=== PATIENT | female | born 1955 | race African-American/Black ===

== ENCOUNTER 2024-11-18 04:49 | Inpatient (IN) | payer OTHER ==
[2024-11-18] MEDS ORDERED: methylPREDNISolone NA SUCC 125 MG/2 ML VIAL ONE (05:24)
[2024-11-18] MEDS ORDERED: ALBUTEROL SO4 2.5/IPRATROPIUM 0.5 INH SOL 3 ML VIAL.NEB. NEB ONE (05:24)
[2024-11-18] MEDS: ALBUTEROL SO4 2.5/IPRATROPIUM 0.5 INH SOL 3 ML VIAL.NEB. NEB ONE (05:30)
[2024-11-18] MEDS: methylPREDNISolone NA SUCC 125 MG/2 ML VIAL IVPUSH ONE (05:47)
[2024-11-18 05:49] LABS: VENOUS BASE EXCESS 6.3 mmol/L (-2-2); VENOUS O2 SATURATION 43.4 % (70-80); VENOUS PCO2 60.6 mmHg (38-52); VENOUS PH 7.365 (7.310-7.410)
[2024-11-18 05:59] LABS: BASO % 1.1 % (0-2.0); EOS % 1.6 % (0-4.5); HEMATOCRIT 42.8 % (32.4-45.2); HEMOGLOBIN 13.9 GM/dL (10.7-15.3); LYMPH % 13.4 % (8-40); MCH 28.3 pg (25.7-33.7); MCHC 32.5 g/dl (32.0-36.0); MEAN CELL VOLUME 86.8 fl (80-96); MEAN PLT VOLUME 6.8 fl (7.5-11.1); MONO % 5.3 % (3.8-10.2); NEUT % 78.6 % (42.8-82.8); PLATELET COUNT 356 10^3/uL (134-434); RBC 4.93 M/mm3 (3.60-5.2); RDW 14.1 % (11.6-15.6); WHITE BLOOD COUNT 5.7 K/mm3 (4.0-10.0)
[2024-11-18 06:09] LABS: POTASSIUM 3.2 mmol/L (3.5-5.1)
[2024-11-18 06:11] LABS: ALBUMIN 3.7 g/dl (3.4-5.0); CALCIUM 9.5 mg/dL (8.5-10.1)
[2024-11-18 06:12] LABS: BLOOD UREA NITROGEN 20.3 mg/dL (7-18)
[2024-11-18 06:15] LABS: CREATININE 0.8 mg/dL (0.55-1.3)
[2024-11-18 06:16] LABS: BILIRUBIN,TOTAL 0.4 mg/dL (0.2-1); TOT PROT 7.4 g/dl (6.4-8.2)
[2024-11-18 06:19] LABS: N-TERMINAL BNP 92.5 pg/ml (5-125)
[2024-11-18] MEDS: POTASSIUM CHLORIDE ORAL LIQUID 20 MEQ/15 ML PO ONE ×2 (06:41→06:52)
[2024-11-18] MEDS ORDERED: CEFTRIAXONE 1 G/50 ML PREMIX 50 ML IVPB ONE (06:51)
[2024-11-18] MEDS ORDERED: POTASSIUM CHLORIDE ORAL LIQUID 20 MEQ/15 ML ONE (06:51)
[2024-11-18] MEDS: CEFTRIAXONE 1,000 MG in DEXTROSE 5%-WATER - 50 ML IVPB ONE (06:52)
[2024-11-18] MEDS: AZITHROMYCIN IVPB 500 MG in DEXTROSE 5%-WATER - 250 ML IVPB ONE (07:45)
[2024-11-18] MEDS ORDERED: AZITHROMYCIN IVPB 500 MG/250 ML BAG IVPB ONE (08:32)
[2024-11-18] MEDS ORDERED: ALBUTEROL SO4 2.5/IPRATROPIUM 0.5 INH SOL 3 ML VIAL.NEB. NEB PRN (10:29)
[2024-11-18] MEDS: ASPIRIN 325 MG TABLET PO SCH (11:10)
[2024-11-18] MEDS: LOSARTAN 50MG/HCTZ 12.5MG 1 TAB PO SCH (11:10)
[2024-11-18] MEDS ORDERED: ASPIRIN 325 MG TABLET ONE (11:22)
[2024-11-18] MEDS: NICOTINE 21 MG/24 HOURS TOPICAL PATCH TD SCH (17:06)
[2024-11-18] MEDS: methylPREDNISolone NA SUCC 40 MG/1 ML VIAL IVPUSH SCH (17:06)
[2024-11-18] MEDS: ALBUTEROL SO4 2.5/IPRATROPIUM 0.5 INH SOL 3 ML VIAL.NEB. NEB SCH (20:09)
[2024-11-18] MEDS: ATORVASTATIN CA 20 MG TABLET (FP) PO SCH (21:46)
[2024-11-19 08:02] LABS: HEMATOCRIT 40.9 % (32.4-45.2); HEMOGLOBIN 13.5 GM/dL (10.7-15.3); MCH 28.5 pg (25.7-33.7); MEAN CELL VOLUME 86.3 fl (80-96); MEAN PLT VOLUME 7.3 fl (7.5-11.1); PLATELET COUNT 371 10^3/uL (134-434); RBC 4.74 M/mm3 (3.60-5.2); RDW 13.7 % (11.6-15.6); WHITE BLOOD COUNT 10.6 K/mm3 (4.0-10.0)
[2024-11-19 08:22] LABS: ALBUMIN 3.7 g/dl (3.4-5.0); CALCIUM 10.3 mg/dL (8.5-10.1)
[2024-11-19 08:23] LABS: BLOOD UREA NITROGEN 21.4 mg/dL (7-18)
[2024-11-19 08:26] LABS: CREATININE 0.6 mg/dL (0.55-1.3)
[2024-11-19 08:27] LABS: BILIRUBIN,TOTAL 0.4 mg/dL (0.2-1); TOT PROT 7.3 g/dl (6.4-8.2)
[2024-11-19] MEDS: CEFTRIAXONE 1 G/50 ML PREMIX 50 ML IVPB SCH (09:35)
[2024-11-19] MEDS: ENOXAPARIN NA (PORCINE) 40 MG/0.4 ML DISP.SYRIN SQ SCH (09:35)
[2024-11-19] MEDS: AZITHROMYCIN IVPB 250 MG in DEXTROSE 5%-WATER - 250 ML IVPB SCH (10:30)
[2024-11-19 11:37] LABS: ANISOCYTOSIS 0; HELMET CELLS 0; HOWELL-JOLLY BODIES 0; MACROCYTOSIS 0; OVALOCYTE 0; ROULEAU 0; SICKELED CELLS 0; TARGET CELLS 0; TEAR DROP CELLS 0; TOXIC GRANULATION 0
[2024-11-19] MEDS: BUDESONIDE/FORMETEROL FUMARATE 160/4.5 mcg INHALER IH PRN (18:43)
[2024-11-20] MEDS: ACETAMINOPHEN 1000 MG/100 ML BAG IVPB PRN (05:35)
[2024-11-20 14:51] VITALS: BMI 22.8
[2024-11-20] MEDS: ACETAMINOPHEN 325 MG TABLET (FP) PO PRN (18:29)
[2024-11-20] MEDS: methylPREDNISolone NA SUCC 40 MG/1 ML VIAL IVPUSH SCH (21:59)
[2024-11-21] MEDS: ACETAMINOPHEN 1000 MG/100 ML BAG IVPB PRN (05:42)
[2024-11-22 08:59] LABS: BASO % 0.2 % (0-2.0); HEMOGLOBIN 13.8 GM/dL (10.7-15.3); LYMPH % 12.4 % (8-40); MCH 28.1 pg (25.7-33.7); MCHC 32.9 g/dl (32.0-36.0); MEAN CELL VOLUME 85.5 fl (80-96); MEAN PLT VOLUME 7.2 fl (7.5-11.1); MONO % 7.6 % (3.8-10.2); NEUT % 79.8 % (42.8-82.8); PLATELET COUNT 362 10^3/uL (134-434); RBC 4.92 M/mm3 (3.60-5.2); RDW 14.1 % (11.6-15.6)
[2024-11-22 09:34] LABS: ALBUMIN 3.5 g/dl (3.4-5.0); CALCIUM 10.4 mg/dL (8.5-10.1)
[2024-11-22 09:35] LABS: BLOOD UREA NITROGEN 21.2 mg/dL (7-18)
[2024-11-22 09:38] LABS: CREATININE 0.6 mg/dL (0.55-1.3)
[2024-11-22 09:39] LABS: BILIRUBIN,TOTAL 0.4 mg/dL (0.2-1); TOT PROT 6.9 g/dl (6.4-8.2)
[2024-11-23 09:14] LABS: BASO % 0.3 % (0-2.0); HEMATOCRIT 42.8 % (32.4-45.2); HEMOGLOBIN 14.2 GM/dL (10.7-15.3); LYMPH % 9.4 % (8-40); MCH 28.3 pg (25.7-33.7); MCHC 33.3 g/dl (32.0-36.0); MEAN PLT VOLUME 6.9 fl (7.5-11.1); MONO % 6.5 % (3.8-10.2); NEUT % 83.8 % (42.8-82.8); PLATELET COUNT 354 10^3/uL (134-434); RBC 5.03 M/mm3 (3.60-5.2); RDW 13.8 % (11.6-15.6); WHITE BLOOD COUNT 6.8 K/mm3 (4.0-10.0)
[2024-11-23 09:18] LABS: INR 1.01 (0.83-1.09)
[2024-11-23 09:42] LABS: POTASSIUM 4.3 mmol/L (3.5-5.1)
[2024-11-23 09:52] LABS: CALCIUM 10.3 mg/dL (8.5-10.1)
[2024-11-23 09:54] LABS: ALBUMIN 3.5 g/dl (3.4-5.0); BLOOD UREA NITROGEN 23.5 mg/dL (7-18)
[2024-11-23 09:56] LABS: CREATININE 0.6 mg/dL (0.55-1.3)
[2024-11-23 09:58] LABS: TOT PROT 6.9 g/dl (6.4-8.2)
[2024-11-23 10:00] LABS: BILIRUBIN,TOTAL 0.4 mg/dL (0.2-1)
[2024-11-23] MEDS: diphenhydrAMINE HCL 25 MG CAPSULE (FP) PO PRN (21:38)
[2024-11-24] MEDS: ALBUTEROL SO4 2.5/IPRATROPIUM 0.5 INH SOL 3 ML VIAL.NEB. NEB PRN (07:55)
[2024-11-24 08:18] LABS: BASO % 0.1 % (0-2.0); HEMATOCRIT 41.9 % (32.4-45.2); HEMOGLOBIN 13.5 GM/dL (10.7-15.3); LYMPH % 11.4 % (8-40); MCHC 32.3 g/dl (32.0-36.0); MEAN CELL VOLUME 86.6 fl (80-96); MEAN PLT VOLUME 7.2 fl (7.5-11.1); MONO % 4.4 % (3.8-10.2); NEUT % 84.1 % (42.8-82.8); PLATELET COUNT 354 10^3/uL (134-434); RBC 4.83 M/mm3 (3.60-5.2); RDW 13.8 % (11.6-15.6); WHITE BLOOD COUNT 5.5 K/mm3 (4.0-10.0)
[2024-11-24 08:37] LABS: POTASSIUM 4.5 mmol/L (3.5-5.1)
[2024-11-24 08:44] LABS: ALBUMIN 3.2 g/dl (3.4-5.0)
[2024-11-24 08:45] LABS: BLOOD UREA NITROGEN 22.8 mg/dL (7-18)
[2024-11-24 08:46] LABS: CALCIUM 9.8 mg/dL (8.5-10.1)
[2024-11-24 08:47] LABS: CREATININE 0.6 mg/dL (0.55-1.3); TOT PROT 6.3 g/dl (6.4-8.2)
[2024-11-24 08:53] LABS: BILIRUBIN,TOTAL 0.4 mg/dL (0.2-1)
[2024-11-24] MEDS: ACETAMINOPHEN 500 MG TABLET (FP) PO ONE (20:35)
[2024-11-25 08:03] LABS: BASO % 0.1 % (0-2.0); HEMATOCRIT 44.8 % (32.4-45.2); HEMOGLOBIN 14.4 GM/dL (10.7-15.3); LYMPH % 8.2 % (8-40); MCHC 32.2 g/dl (32.0-36.0); MEAN CELL VOLUME 86.9 fl (80-96); MEAN PLT VOLUME 7.1 fl (7.5-11.1); MONO % 3.5 % (3.8-10.2); NEUT % 88.2 % (42.8-82.8); PLATELET COUNT 375 10^3/uL (134-434); RBC 5.15 M/mm3 (3.60-5.2); RDW 13.8 % (11.6-15.6); WHITE BLOOD COUNT 8.1 K/mm3 (4.0-10.0)
[2024-11-25 08:22] LABS: POTASSIUM 5.1 mmol/L (3.5-5.1)
[2024-11-25 08:24] LABS: CALCIUM 10.4 mg/dL (8.5-10.1)
[2024-11-25 08:25] LABS: ALBUMIN 3.6 g/dl (3.4-5.0); BLOOD UREA NITROGEN 22.1 mg/dL (7-18)
[2024-11-25 08:28] LABS: CREATININE 0.6 mg/dL (0.55-1.3)
[2024-11-25 08:29] LABS: BILIRUBIN,TOTAL 0.5 mg/dL (0.2-1)
[2024-11-25 12:38] LABS: BF WBC & OTHER NUCLEATED CELLS 747 /mm3
[2024-11-25 12:54] LABS: BODY FLUID MESOTHELIAL 1 %; BODY FLUID MONOCYTE 15 %
[2024-11-25] MEDS: ACETAMINOPHEN 1000 MG/100 ML BAG IVPB PRN (13:58)
[2024-11-26] MEDS: ASPIRIN COATED 81 MG TABLET.EC PO SCH (09:10)
[2024-11-26 09:52] LABS: BASO % 0.1 % (0-2.0); HEMATOCRIT 43.2 % (32.4-45.2); LYMPH % 8.6 % (8-40); MCH 27.8 pg (25.7-33.7); MCHC 32.4 g/dl (32.0-36.0); MEAN CELL VOLUME 85.7 fl (80-96); MEAN PLT VOLUME 7.2 fl (7.5-11.1); MONO % 7.5 % (3.8-10.2); NEUT % 83.8 % (42.8-82.8); PLATELET COUNT 341 10^3/uL (134-434); RBC 5.03 M/mm3 (3.60-5.2); WHITE BLOOD COUNT 9.4 K/mm3 (4.0-10.0)
[2024-11-26 10:15] LABS: POTASSIUM 4.8 mmol/L (3.5-5.1)
[2024-11-26 10:18] LABS: CALCIUM 9.7 mg/dL (8.5-10.1)
[2024-11-26 10:19] LABS: ALBUMIN 3.3 g/dl (3.4-5.0); BLOOD UREA NITROGEN 23.4 mg/dL (7-18)
[2024-11-26 10:22] LABS: CREATININE 0.7 mg/dL (0.55-1.3)
[2024-11-26 10:24] LABS: BILIRUBIN,TOTAL 0.4 mg/dL (0.2-1); TOT PROT 6.4 g/dl (6.4-8.2)
[2024-11-26 14:06] LABS: BODY FLUID ALBUMIN 1.8 g/dL (Not Estab.)
[2024-11-26] MEDS: ACETAMINOPHEN 325 MG TABLET (FP) PO PRN (19:17)
[2024-11-27 09:38] LABS: BASO % 0.1 % (0-2.0); HEMATOCRIT 41.2 % (32.4-45.2); HEMOGLOBIN 13.5 GM/dL (10.7-15.3); LYMPH % 6.7 % (8-40); MCH 27.9 pg (25.7-33.7); MCHC 32.8 g/dl (32.0-36.0); MEAN PLT VOLUME 7.2 fl (7.5-11.1); MONO % 5.8 % (3.8-10.2); NEUT % 87.4 % (42.8-82.8); PLATELET COUNT 329 10^3/uL (134-434); RBC 4.85 M/mm3 (3.60-5.2); RDW 14.1 % (11.6-15.6); WHITE BLOOD COUNT 8.3 K/mm3 (4.0-10.0)
[2024-11-27 10:01] LABS: POTASSIUM 5.1 mmol/L (3.5-5.1)
[2024-11-27 10:18] LABS: CALCIUM 9.7 mg/dL (8.5-10.1)
[2024-11-27 10:19] LABS: ALBUMIN 3.3 g/dl (3.4-5.0); BLOOD UREA NITROGEN 22.4 mg/dL (7-18)
[2024-11-27 10:22] LABS: CREATININE 0.6 mg/dL (0.55-1.3)
[2024-11-27 10:23] LABS: BILIRUBIN,TOTAL 0.6 mg/dL (0.2-1)
[2024-11-27 10:24] LABS: TOT PROT 6.4 g/dl (6.4-8.2)
[2024-11-28 07:26] VITALS: TEMP 98.1
[2024-11-28 07:31] VITALS: RESP 18
[2024-11-28 12:20] VITALS: BP 132/75
[2024-11-28] MEDS ORDERED: predniSONE 20 MG TABLET (UD) PO SCH (12:45)
[2024-11-28 13:43] VITALS: PULSE 84
[2024-11-29] MEDS ORDERED: methylPREDNISolone NA SUCC 40 MG/1 ML VIAL IVPUSH SCH (10:00)
== END 2024-11-28 19:06 | disposition home or self-care (01) | DRG 181 ==
LOC: JER 04:49 → OBSVTOIN 06:30 → JERBED 06:30 → J7W 12:00
PROVIDERS: ADMIT Internal Medicine; ATTEND Internal Medicine
PROC: 0W9B3ZZ Drainage of Left Pleural Cavity, Percutaneous Approach (ICD-10-PCS; principal; 2024-11-25)
DX: D49.1 Neoplasm of unspecified behavior of respiratory system (principal); J44.1 Chronic obstructive pulmonary disease with (acute) exacerbation; J45.901 Unspecified asthma with (acute) exacerbation; J91.0 Malignant pleural effusion; I27.20 Pulmonary hypertension, unspecified; E78.5 Hyperlipidemia, unspecified; I11.0 Hypertensive heart disease with heart failure; I50.9 Heart failure, unspecified; F41.8 Other specified anxiety disorders; F17.210 Nicotine dependence, cigarettes, uncomplicated; Z85.3 Personal history of malignant neoplasm of breast
CPT/HCPCS: 0241U-QW; 36415; 71045-TC-FY; 71250-TC; 76942; 80053; 82042; 82150; 82803; 82945; 83036; 83880; 84478; 84484; 85025; 85610; 86850; 86900; 86901; 87070; 87075; 87116; 87205; 87206; 88108; 88305-TC; 88341-TC; 88342-TC; 93005; 93010; 93306-TC; 94640; 94761; 99285-25; J0131

== ENCOUNTER 2024-12-26 22:07 | Inpatient (IN) | payer OTHER ==
[2024-12-26] MEDS ORDERED: ALBUTEROL SO4 2.5/IPRATROPIUM 0.5 INH SOL 3 ML VIAL.NEB. NEB ONE (22:24)
[2024-12-26] MEDS ORDERED: methylPREDNISolone NA SUCC 125 MG/2 ML VIAL ONE ×2 (22:27→23:04)
[2024-12-26] MEDS: ALBUTEROL SO4 2.5/IPRATROPIUM 0.5 INH SOL 3 ML VIAL.NEB. NEB SCH (22:37)
[2024-12-26 22:48] LABS: RDW 13.6 % (12.4-16.6)
[2024-12-26 22:49] LABS: VENOUS O2 SATURATION 59.8 % (70-80); VENOUS PCO2 58.2 mmHg (38-52); VENOUS PH 7.407 (7.310-7.410)
[2024-12-26 22:59] LABS: ABSOLUTE IMMATURE GRANULOCYTES 0.02 x10^3/uL (0.0-0.031); BASOPHILS # 0.04 x10^3/uL (0.01-0.08); EOSINOPHIL % 1.6 % (0.7-5.8); EOSINOPHILS # 0.09 x10^3/uL (0.04-0.36); HEMATOCRIT 42.2 % (34.1-44.9); MCHC 30.8 g/dl (32.2-35.5); MEAN CELL VOLUME 87.2 fl (79.4-94.8); MONOCYTE % 8.8 % (4.7-12.5); PLATELET COUNT 514 x10^3/uL (182-369)
[2024-12-26 23:15] LABS: CHLORIDE 95 mmol/L (98-107); SODIUM 141 mmol/L (136-145)
[2024-12-26 23:17] LABS: CALCIUM 9.9 mg/dL (8.5-10.1); POTASSIUM 2.7 mmol/L (3.5-5.1)
[2024-12-26 23:18] LABS: ALBUMIN 3.4 g/dl (3.4-5.0); ANION GAP 11 mmol/L (4-13); BLOOD UREA NITROGEN 17.1 mg/dL (7-18); CO2 35 mmol/L (21-32); GLUCOSE,RANDOM 192 mg/dL (74-106); MAGNESIUM 1.9 mg/dL (1.8-2.4)
[2024-12-26] MEDS: methylPREDNISolone NA SUCC 125 MG/2 ML VIAL IVPB ONE (23:18)
[2024-12-26 23:21] LABS: CREATININE 0.7 mg/dL (0.55-1.3); SGOT/AST 13 U/L (15-37); SGPT/ALT 14 U/L (13-61)
[2024-12-26 23:22] LABS: BILIRUBIN,TOTAL 0.4 mg/dL (0.2-1); TOT PROT 6.6 g/dl (6.4-8.2)
[2024-12-26 23:23] LABS: ALK PHOS 117 U/L (45-117)
[2024-12-26] MEDS ORDERED: POTASSIUM CHLORIDE TABS 20 MEQ TABLET.ER (FP) PO ONE (23:29)
[2024-12-26] MEDS: KCL 10 MEQ IVPB 10 MEQ/100 ML INFUS.BAG IVPB SCH (23:37)
[2024-12-26] MEDS: POTASSIUM CHLORIDE TABS 20 MEQ TABLET.ER (FP) PO ONE (23:37)
[2024-12-27] MEDS ORDERED: PIPERACILLIN/TAZOB 3.375 GM 3.375 GM/50 ML BAG IVPB ONE (00:29)
[2024-12-27] MEDS ORDERED: AZITHROMYCIN IVPB 500 MG/250 ML BAG IVPB ONE (00:30)
[2024-12-27] MEDS: PIPERACILLIN/TAZOB 3.375 GM 3.375 GM in DEXTROSE 5%-WATER - 50 ML IVPB ONE (01:25)
[2024-12-27] MEDS: amLODIPine BESYLATE 5 MG TABLET (FP) PO ONE (01:43)
[2024-12-27] MEDS: AZITHROMYCIN IVPB 500 MG in DEXTROSE 5%-WATER - 250 ML IVPB ONE (01:43)
[2024-12-27] MEDS: LOSARTAN 50MG/HCTZ 12.5MG 1 TAB PO ONE (01:43)
[2024-12-27] MEDS ORDERED: PIPERACILLIN/TAZOB 3.375 GM 3.375 GM in DEXTROSE 5%-WATER - 50 ML IVPB SCH (02:00)
[2024-12-27] MEDS ORDERED: ALBUTEROL SO4 0.083% IH SOL 2.5 MG/3 ML VIAL.NEB. NEB ONE (03:28)
[2024-12-27] MEDS: ALBUTEROL SO4 0.083% IH SOL 2.5 MG/3 ML VIAL.NEB. NEB SCH (03:30)
[2024-12-27] MEDS: HEPARIN NA (PORCINE) 5,000 UNITS/ML 1ML VIAL SQ SCH (06:02)
[2024-12-27] MEDS: POTASSIUM CHLORIDE TABS 20 MEQ TABLET.ER (FP) PO ONE (08:58)
[2024-12-27 10:12] LABS: ABSOLUTE IMMATURE GRANULOCYTES 0.01 x10^3/uL (0.0-0.031); BASOPHILS # 0.04 x10^3/uL (0.01-0.08); EOSINOPHIL % 1.1 % (0.7-5.8); EOSINOPHILS # 0.05 x10^3/uL (0.04-0.36); HEMATOCRIT 38.3 % (34.1-44.9); HEMOGLOBIN 11.9 g/dL (11.2-15.7); MCHC 31.1 g/dl (32.2-35.5); MEAN CELL VOLUME 86.8 fl (79.4-94.8); MEAN PLT VOLUME 9.1 fl (9.4-12.3); MONOCYTE # 0.36 x10^3/uL (0.24-0.86); MONOCYTE % 7.6 % (4.7-12.5); PLATELET COUNT 470 x10^3/uL (182-369); RDW 13.8 % (12.4-16.6)
[2024-12-27] MEDS: ASPIRIN COATED 81 MG TABLET.EC PO SCH (10:18)
[2024-12-27 10:34] LABS: POTASSIUM 3.5 mmol/L (3.5-5.1)
[2024-12-27 10:38] LABS: BLOOD UREA NITROGEN 15.9 mg/dL (7-18); CALCIUM 9.3 mg/dL (8.5-10.1)
[2024-12-27 10:40] LABS: ALBUMIN 3.1 g/dl (3.4-5.0)
[2024-12-27 10:42] LABS: CREATININE 0.7 mg/dL (0.55-1.3)
[2024-12-27 10:44] LABS: BILIRUBIN,TOTAL 0.5 mg/dL (0.2-1); TOT PROT 6.3 g/dl (6.4-8.2)
[2024-12-27] MEDS: PIPERACILLIN/TAZOB 3.375 GM 50 ML IVPB SCH ×2 (10:55→17:36)
[2024-12-27] MEDS: FLUTICASONE/UMECLIDIN/VILANTER(200-62.5-25 TRELEGY ELLIPTA) INAHLER IH SCH (15:35)
[2024-12-27] MEDS: ATORVASTATIN CA 40 MG TABLET (FP) PO SCH (21:13)
[2024-12-28 09:35] LABS: INR 1.04 (0.83-1.09); PROTHROMBIN TIME (PATIENT) 11.4 SEC (9.7-13.0)
[2024-12-28 09:37] LABS: ABSOLUTE IMMATURE GRANULOCYTES 0.01 x10^3/uL (0.0-0.031); BASOPHILS # 0.01 x10^3/uL (0.01-0.08); EOSINOPHIL % 1.8 % (0.7-5.8); EOSINOPHILS # 0.08 x10^3/uL (0.04-0.36); HEMATOCRIT 39.4 % (34.1-44.9); HEMOGLOBIN 12.3 g/dL (11.2-15.7); MCHC 31.2 g/dl (32.2-35.5); MEAN CELL VOLUME 86.8 fl (79.4-94.8); MONOCYTE # 0.32 x10^3/uL (0.24-0.86); MONOCYTE % 7.2 % (4.7-12.5); RDW 13.7 % (12.4-16.6)
[2024-12-28 09:47] LABS: POTASSIUM 3.7 mmol/L (3.5-5.1)
[2024-12-28 09:53] LABS: CALCIUM 9.9 mg/dL (8.5-10.1)
[2024-12-28 09:54] LABS: ALBUMIN 3.2 g/dl (3.4-5.0); BLOOD UREA NITROGEN 11.2 mg/dL (7-18)
[2024-12-28 09:57] LABS: CREATININE 0.6 mg/dL (0.55-1.3)
[2024-12-28 09:59] LABS: TOT PROT 6.4 g/dl (6.4-8.2)
[2024-12-28 10:00] LABS: BILIRUBIN,TOTAL 0.5 mg/dL (0.2-1)
[2024-12-28 15:17] VITALS: BMI 22.8
[2024-12-28 18:17] LABS: MEAN PLT VOLUME 9.9 fl (9.4-12.3); PLATELET COUNT 477 x10^3/uL (182-369)
[2024-12-28] MEDS: INSULIN ASPART SLIDING SCALE (NOVOLOG) 1 VIAL SQ SCH (21:09)
[2024-12-29 08:34] LABS: ABSOLUTE IMMATURE GRANULOCYTES 0.01 x10^3/uL (0.0-0.031); BASOPHILS # 0.03 x10^3/uL (0.01-0.08); EOSINOPHIL % 1.4 % (0.7-5.8); EOSINOPHILS # 0.08 x10^3/uL (0.04-0.36); HEMATOCRIT 38.5 % (34.1-44.9); HEMOGLOBIN 11.8 g/dL (11.2-15.7); MCHC 30.6 g/dl (32.2-35.5); MEAN CELL VOLUME 87.3 fl (79.4-94.8); MEAN PLT VOLUME 8.8 fl (9.4-12.3); MONOCYTE # 0.35 x10^3/uL (0.24-0.86); MONOCYTE % 6.3 % (4.7-12.5); PLATELET COUNT 491 x10^3/uL (182-369); RDW 13.8 % (12.4-16.6)
[2024-12-29 08:57] LABS: POTASSIUM 3.4 mmol/L (3.5-5.1)
[2024-12-29 09:17] LABS: CALCIUM 10.3 mg/dL (8.5-10.1)
[2024-12-29 09:18] LABS: ALBUMIN 3.2 g/dl (3.4-5.0)
[2024-12-29 09:21] LABS: CREATININE 0.6 mg/dL (0.55-1.3)
[2024-12-29 09:22] LABS: BILIRUBIN,TOTAL 0.5 mg/dL (0.2-1); TOT PROT 6.5 g/dl (6.4-8.2)
[2024-12-29] MEDS ORDERED: MIDAZOLAM HCL 2 MG/2 ML SINGLE DOSE VIAL ONE (09:27)
[2024-12-29] MEDS ORDERED: FENTANYL CITRATE/PF 50 MCG/ML VIAL ONE ×2 (09:27→09:43)
[2024-12-29] MEDS: FENTANYL CITRATE/PF 50 MCG/ML VIAL IVPUSH ONE ×2 (09:35→09:45)
[2024-12-29] MEDS: MIDAZOLAM HCL 2 MG/2 ML SINGLE DOSE VIAL IVPUSH ONE ×2 (09:35→09:40)
[2024-12-29] MEDS: ACETAMINOPHEN 1000 MG/100 ML BAG IVPB PRN (13:52)
[2024-12-30 08:57] LABS: ABSOLUTE IMMATURE GRANULOCYTES 0.02 x10^3/uL (0.0-0.031); BASOPHILS # 0.05 x10^3/uL (0.01-0.08); EOSINOPHIL % 1.3 % (0.7-5.8); EOSINOPHILS # 0.09 x10^3/uL (0.04-0.36); HEMATOCRIT 37.7 % (34.1-44.9); HEMOGLOBIN 11.6 g/dL (11.2-15.7); MCHC 30.8 g/dl (32.2-35.5); MEAN CELL VOLUME 86.9 fl (79.4-94.8); MEAN PLT VOLUME 8.6 fl (9.4-12.3); MONOCYTE # 0.66 x10^3/uL (0.24-0.86); MONOCYTE % 9.7 % (4.7-12.5); PLATELET COUNT 456 x10^3/uL (182-369); RDW 14.1 % (12.4-16.6)
[2024-12-30 09:27] LABS: POTASSIUM 3.3 mmol/L (3.5-5.1)
[2024-12-30 09:52] LABS: ALBUMIN 2.8 g/dl (3.4-5.0); CALCIUM 9.9 mg/dL (8.5-10.1)
[2024-12-30 09:55] LABS: CREATININE 0.5 mg/dL (0.55-1.3)
[2024-12-30 09:57] LABS: BILIRUBIN,TOTAL 0.6 mg/dL (0.2-1); TOT PROT 5.9 g/dl (6.4-8.2)
[2024-12-30] MEDS: ENOXAPARIN NA (PORCINE) 40 MG/0.4 ML DISP.SYRIN SQ SCH (10:14)
[2024-12-30] MEDS: ACETAMINOPHEN 1000 MG/100 ML BAG IVPB PRN (22:27)
[2024-12-30] MEDS: ZOLPIDEM TARTRATE 5 MG TABLET PO PRN (22:27)
[2024-12-30] MEDS: BUDESONIDE/FORMETEROL FUMARATE 160/4.5 mcg INHALER IH SCH (22:27)
[2024-12-31 08:39] LABS: ABSOLUTE IMMATURE GRANULOCYTES 0.02 x10^3/uL (0.0-0.031); BASOPHILS # 0.04 x10^3/uL (0.01-0.08); EOSINOPHIL % 1.3 % (0.7-5.8); EOSINOPHILS # 0.07 x10^3/uL (0.04-0.36); HEMATOCRIT 39.1 % (34.1-44.9); MCHC 30.7 g/dl (32.2-35.5); MEAN CELL VOLUME 88.1 fl (79.4-94.8); MEAN PLT VOLUME 8.8 fl (9.4-12.3); MONOCYTE # 0.52 x10^3/uL (0.24-0.86); MONOCYTE % 9.4 % (4.7-12.5); PLATELET COUNT 429 x10^3/uL (182-369); RDW 14.3 % (12.4-16.6)
[2024-12-31 09:02] LABS: POTASSIUM 3.3 mmol/L (3.5-5.1)
[2024-12-31 09:13] LABS: CALCIUM 9.7 mg/dL (8.5-10.1)
[2024-12-31 09:14] LABS: ALBUMIN 2.8 g/dl (3.4-5.0); BLOOD UREA NITROGEN 12.8 mg/dL (7-18)
[2024-12-31 09:17] LABS: CREATININE 0.5 mg/dL (0.55-1.3)
[2024-12-31 09:19] LABS: BILIRUBIN,TOTAL 0.8 mg/dL (0.2-1); TOT PROT 5.8 g/dl (6.4-8.2)
[2024-12-31] MEDS: POTASSIUM CHLORIDE ORAL LIQUID 20 MEQ/15 ML PO ONE (13:43)
[2024-12-31] MEDS: ACETAMINOPHEN 1000 MG/100 ML BAG IVPB PRN (23:15)
[2025-01-01 08:23] LABS: ABSOLUTE IMMATURE GRANULOCYTES 0.01 x10^3/uL (0.0-0.031); BASOPHILS # 0.03 x10^3/uL (0.01-0.08); EOSINOPHIL % 1.2 % (0.7-5.8); EOSINOPHILS # 0.07 x10^3/uL (0.04-0.36); HEMOGLOBIN 11.2 g/dL (11.2-15.7); MCHC 31.1 g/dl (32.2-35.5); MEAN CELL VOLUME 87.2 fl (79.4-94.8); MONOCYTE # 0.62 x10^3/uL (0.24-0.86); MONOCYTE % 10.9 % (4.7-12.5); PLATELET COUNT 409 x10^3/uL (182-369)
[2025-01-01 08:30] LABS: POTASSIUM 3.3 mmol/L (3.5-5.1)
[2025-01-01 08:31] LABS: BLOOD UREA NITROGEN 14.9 mg/dL (7-18); CALCIUM 9.3 mg/dL (8.5-10.1)
[2025-01-01 08:32] LABS: ALBUMIN 2.5 g/dl (3.4-5.0)
[2025-01-01 08:35] LABS: CREATININE 0.4 mg/dL (0.55-1.3)
[2025-01-01 08:36] LABS: BILIRUBIN,TOTAL 0.4 mg/dL (0.2-1)
[2025-01-01 08:52] LABS: TOT PROT 5.5 g/dl (6.4-8.2)
[2025-01-01] MEDS: ESCITALOPRAM OXALATE 10 MG TABLET PO SCH (16:14)
[2025-01-02 08:10] LABS: ABSOLUTE IMMATURE GRANULOCYTES 0.02 x10^3/uL (0.0-0.031); BASOPHILS # 0.04 x10^3/uL (0.01-0.08); EOSINOPHIL % 1.1 % (0.7-5.8); EOSINOPHILS # 0.06 x10^3/uL (0.04-0.36); HEMATOCRIT 35.5 % (34.1-44.9); HEMOGLOBIN 10.9 g/dL (11.2-15.7); MCHC 30.7 g/dl (32.2-35.5); MEAN CELL VOLUME 88.5 fl (79.4-94.8); MEAN PLT VOLUME 8.7 fl (9.4-12.3); MONOCYTE # 0.57 x10^3/uL (0.24-0.86); MONOCYTE % 10.4 % (4.7-12.5); PLATELET COUNT 410 x10^3/uL (182-369); RDW 14.1 % (12.4-16.6)
[2025-01-02 08:38] LABS: POTASSIUM 3.9 mmol/L (3.5-5.1)
[2025-01-02 08:45] LABS: CALCIUM 9.6 mg/dL (8.5-10.1)
[2025-01-02 08:46] LABS: ALBUMIN 2.6 g/dl (3.4-5.0)
[2025-01-02 08:49] LABS: CREATININE 0.5 mg/dL (0.55-1.3)
[2025-01-02 08:50] LABS: BILIRUBIN,TOTAL 0.5 mg/dL (0.2-1)
[2025-01-02 08:51] LABS: TOT PROT 5.9 g/dl (6.4-8.2)
[2025-01-03 08:39] LABS: ABSOLUTE IMMATURE GRANULOCYTES 0.03 x10^3/uL (0.0-0.031); BASOPHILS # 0.03 x10^3/uL (0.01-0.08); EOSINOPHIL % 0.5 % (0.7-5.8); EOSINOPHILS # 0.03 x10^3/uL (0.04-0.36); HEMOGLOBIN 11.3 g/dL (11.2-15.7); MCHC 30.5 g/dl (32.2-35.5); MEAN CELL VOLUME 88.7 fl (79.4-94.8); MEAN PLT VOLUME 8.9 fl (9.4-12.3); MONOCYTE # 0.43 x10^3/uL (0.24-0.86); MONOCYTE % 7.6 % (4.7-12.5); PLATELET COUNT 434 x10^3/uL (182-369); RDW 14.1 % (12.4-16.6)
[2025-01-03 09:00] LABS: POTASSIUM 3.8 mmol/L (3.5-5.1)
[2025-01-03 09:06] LABS: ALBUMIN 2.7 g/dl (3.4-5.0); CALCIUM 9.3 mg/dL (8.5-10.1)
[2025-01-03 09:10] LABS: CREATININE 0.5 mg/dL (0.55-1.3)
[2025-01-03 09:11] LABS: BILIRUBIN,TOTAL 0.8 mg/dL (0.2-1)
[2025-01-03] MEDS: NICOTINE 21 MG/24 HOURS TOPICAL PATCH TD SCH (16:04)
[2025-01-04 09:37] LABS: ABSOLUTE IMMATURE GRANULOCYTES 0.02 x10^3/uL (0.0-0.031); BASOPHILS # 0.03 x10^3/uL (0.01-0.08); EOSINOPHIL % 0.2 % (0.7-5.8); EOSINOPHILS # 0.01 x10^3/uL (0.04-0.36); HEMATOCRIT 37.8 % (34.1-44.9); HEMOGLOBIN 11.3 g/dL (11.2-15.7); MCHC 29.9 g/dl (32.2-35.5); MEAN CELL VOLUME 89.4 fl (79.4-94.8); MONOCYTE # 0.48 x10^3/uL (0.24-0.86); MONOCYTE % 8.3 % (4.7-12.5); PLATELET COUNT 461 x10^3/uL (182-369)
[2025-01-04 09:52] LABS: POTASSIUM 4.1 mmol/L (3.5-5.1)
[2025-01-04 09:58] LABS: ALBUMIN 2.8 g/dl (3.4-5.0); BLOOD UREA NITROGEN 17.6 mg/dL (7-18); CALCIUM 9.6 mg/dL (8.5-10.1)
[2025-01-04 10:01] LABS: CREATININE 0.5 mg/dL (0.55-1.3)
[2025-01-04 10:02] LABS: BILIRUBIN,TOTAL 0.6 mg/dL (0.2-1); TOT PROT 6.4 g/dl (6.4-8.2)
[2025-01-04] MEDS: ACETAMINOPHEN 1000 MG/100 ML BAG IVPB PRN (11:12)
[2025-01-05 04:08] VITALS: RESP 18
[2025-01-06 12:47] VITALS: BP 136/83; PULSE 98; TEMP 98.4
== END 2025-01-06 11:05 | DRG 598 ==
LOC: JER 22:07 → JERBED 23:52 → J6S 12-27 03:53
PROVIDERS: ADMIT Hospitalist; ATTEND Internal Medicine
PROC: 0W9B3ZZ Drainage of Left Pleural Cavity, Percutaneous Approach (ICD-10-PCS; principal; 2024-12-29)
DX: C50.919 Malignant neoplasm of unspecified site of unspecified female breast (principal); J44.1 Chronic obstructive pulmonary disease with (acute) exacerbation; J91.0 Malignant pleural effusion; E78.5 Hyperlipidemia, unspecified; I10 Essential (primary) hypertension; F41.1 Generalized anxiety disorder; E11.9 Type 2 diabetes mellitus without complications; Z85.3 Personal history of malignant neoplasm of breast
CPT/HCPCS: 0241U-QW; 32550; 36415; 71045-TC-FY; 71250-TC; 74178-TC; 78306-TC; 80053; 82803; 82962; 83036; 83735; 85025; 85610; 87635; 93005; 93010; 94640; 94761; 97116-GP; 97161-GP; 99285-25; A9503; J0131; J1644; Q9967

== ENCOUNTER 2025-04-07 18:15 | Inpatient (IN) | payer OTHER ==
[2025-04-07] MEDS ORDERED: RAPID SEQUENCE INTUBATION KIT NR ONE (18:22)
[2025-04-07] MEDS ORDERED: EPINEPHrine 1:1000 P/F - 1 MG/ML AMP ONE ×2 (18:27→18:29)
[2025-04-07] MEDS ORDERED: ROCURONIUM BROMIDE 50 MG/5 ML VIAL ONE (18:37)
[2025-04-07] MEDS: ROCURONIUM BROMIDE 50 MG/5 ML VIAL IV ONE ×2 (19:01→21:40)
[2025-04-07] MEDS: LACTATED RINGERS SOLUTION 1000 ML INFUS.BAG IV ONE (19:01)
[2025-04-07 19:13] LABS: BG HCT 34.0 % (32.4-45.2); VENOUS BASE EXCESS -7.0 mmol/L (-2-2); VENOUS O2 SATURATION 70.7 % (70-80)
[2025-04-07 19:14] LABS: ABSOLUTE IMMATURE GRANULOCYTES 0.05 x10^3/uL (0.0-0.031); BASOPHILS # 0.08 x10^3/uL (0.01-0.08); EOSINOPHIL % 1.0 % (0.7-5.8); EOSINOPHILS # 0.11 x10^3/uL (0.04-0.36); MCHC 28.9 g/dl (32.2-35.5); MEAN CELL VOLUME 95.7 fl (79.4-94.8); MEAN PLT VOLUME 9.7 fl (9.4-12.3); MONOCYTE # 0.93 x10^3/uL (0.24-0.86); MONOCYTE % 8.1 % (4.7-12.5); RDW 13.9 % (12.4-16.6)
[2025-04-07] MEDS ORDERED: PROPOFOL 1,000,000 MCG/100 ML VIAL ONE (19:16)
[2025-04-07] MEDS ORDERED: PIPERACILLIN/TAZOB 4.5 GM 4.5 GM/100 ML BAG IVPB ONE (19:17)
[2025-04-07] MEDS: EPINEPHrine 1:1,000 1,000 MCG/ML ML SQ ONE (19:18)
[2025-04-07 19:19] LABS: VENOUS PH 7.108 (7.310-7.410)
[2025-04-07 19:20] LABS: VENOUS PCO2 76.3 mmHg (38-52)
[2025-04-07] MEDS: PROPOFOL 1,000,000 MCG/100 ML VIAL IVPB SCH (19:35)
[2025-04-07 19:39] LABS: CO2 24.0 mmol/L (21-32); GLUCOSE,RANDOM 194.0 mg/dL (74-106)
[2025-04-07 19:42] LABS: CREATININE 0.5 mg/dL (0.55-1.3); SGOT/AST 15.0 U/L (15-37); SGPT/ALT 8.0 U/L (13-61)
[2025-04-07 19:44] LABS: TOT PROT 5.7 g/dl (6.4-8.2)
[2025-04-07] MEDS: PIPERACILLIN/TAZOB 4.5 GM 4.5 GM in DEXTROSE 5%-WATER 100 ML IVPB ONE (19:45)
[2025-04-07 19:46] LABS: ALK PHOS 118.0 U/L (45-117)
[2025-04-07] MEDS ORDERED: VANCOMYCIN 1 GM PREMIX (F) 1 GM/200 ML BAG ONE (20:13)
[2025-04-07] MEDS: VANCOMYCIN 1,000 MG in DEXTROSE 5%-WATER - 250 ML IVPB ONE (20:27)
[2025-04-07 20:32] LABS: URINE APPEARANCE CLOUDY; URINE BILIRUBIN NEGATIVE (NEGATIVE); URINE COLOR YELLOW; URINE GLUCOSE (UA) TRACE (NEGATIVE); URINE KETONE TRACE (NEGATIVE); URINE LEUK ESTERASE NEGATIVE (NEGATIVE); URINE NITRITE NEGATIVE (NEGATIVE); URINE PROTEIN TRACE (NEGATIVE); URINE UROBILINOGEN 0.2 mg/dL (0.2-1.0)
[2025-04-07] MEDS: ETOMIDATE 40 MG/20 ML VIAL IVPUSH ONE (21:39)
[2025-04-07 21:59] LABS: ARTERIAL BLD GAS O2 SATURATION 99.7 % (95-98); ARTERIAL BLOOD GAS BASE EXCESS -1.1 mmol/L (-2-2); ARTERIAL BLOOD GAS PCO2 52.60 mmHg (35-45); ARTERIAL BLOOD GAS PO2 355.1 mmHg (80-100); BG HCT 31.0 % (32.4-45.2); O2 CONTENT 1.58 % vol
[2025-04-07] MEDS: CHLORHEXIDINE GLUCONATE 4% CLEANSER FOR DECOLONIZATION TP SCH (22:07)
[2025-04-07] MEDS: HEPARIN NA (PORCINE) 5,000 UNITS/ML 1ML VIAL SQ SCH (22:08)
[2025-04-07] MEDS: MUPIROCIN 2% TOPICAL OINTMENT FOR DECOLONIZATION NS SCH (22:51)
[2025-04-07] MEDS: LACTATED RINGERS SOLUTION 1,000 ML/1,000 ML INFUS.BAG IV STA ×2 (22:53→23:21)
[2025-04-07] MEDS ORDERED: ALBUTEROL SO4 0.083% IH SOL 2.5 MG/3 ML VIAL.NEB. NEB PRN (22:57)
[2025-04-07] MEDS ORDERED: MIDAZOLAM IN 0.9 % SOD.CHLORID 1 MG/1 ML PLAST..BAG ONE (23:13)
[2025-04-07] MEDS ORDERED: NOREPINEPHRINE BITARTRATE 4 MG/4 ML ML IV ONE (23:18)
[2025-04-07] MEDS: MIDAZOLAM IN 0.9 % SOD.CHLORID 100 MG/100 ML PLAST..BAG IVPB SCH (23:26)
[2025-04-07] MEDS: MIDAZOLAM HCL 2 MG/2 ML SINGLE DOSE VIAL IVPUSH ONE (23:27)
[2025-04-07] MEDS ORDERED: DEXMEDETOMIDINE PREMIX 400 MCG/100 ML BAG IVPB ONE (23:43)
[2025-04-07] MEDS: DEXMEDETOMIDINE PREMIX 400 MCG/100 ML BAG IVPB SCH (23:45)
[2025-04-08 00:43] LABS: CO2 28.0 mmol/L (21-32); GLUCOSE,RANDOM 193.0 mg/dL (74-106)
[2025-04-08 00:46] LABS: CREATININE 0.4 mg/dL (0.55-1.3)
[2025-04-08 00:47] LABS: SGOT/AST 12.0 U/L (15-37); SGPT/ALT 6.0 U/L (13-61); TOT PROT 4.5 g/dl (6.4-8.2)
[2025-04-08 00:50] LABS: ALK PHOS 89.0 U/L (45-117)
[2025-04-08 00:51] LABS: N-TERMINAL BNP 582.7 pg/ml (5-125)
[2025-04-08] MEDS: methylPREDNISolone NA SUCC 40 MG/1 ML VIAL IVPUSH SCH (01:09)
[2025-04-08] MEDS: PIPERACILLIN/TAZOB 3.375 GM 3.375 GM in DEXTROSE 5%-WATER - 50 ML IVPB SCH (01:09)
[2025-04-08 01:30] LABS: LACTIC ACID 3.2 mmol/L (0.4-2.0)
[2025-04-08] MEDS ORDERED: ATROPINE SULFATE 1 MG/10 ML DISP.SYRIN ONE (02:28)
[2025-04-08] MEDS: ATROPINE SULFATE 1 MG/10 ML DISP.SYRIN IVPUSH ONE (03:24)
[2025-04-08] MEDS: KCL 10 MEQ IVPB 10 MEQ/100 ML INFUS.BAG IVPB SCH (03:35)
[2025-04-08 04:08] LABS: LACTIC ACID 2.1 mmol/L (0.4-2.0)
[2025-04-08 04:49] LABS: ARTERIAL BLD GAS O2 SATURATION 98.0 % (95-98); ARTERIAL BLOOD GAS BASE EXCESS 1.6 mmol/L (-2-2); ARTERIAL BLOOD GAS PCO2 44.30 mmHg (35-45); ARTERIAL BLOOD GAS PO2 110.8 mmHg (80-100); BG HCT 31.0 % (32.4-45.2); O2 CONTENT 1.48 % vol
[2025-04-08 06:19] LABS: ARTERIAL BLD GAS O2 SATURATION 98.0 % (95-98); ARTERIAL BLOOD GAS BASE EXCESS 3.8 mmol/L (-2-2); ARTERIAL BLOOD GAS PCO2 44.80 mmHg (35-45); ARTERIAL BLOOD GAS PO2 107.3 mmHg (80-100); BG HCT 30.0 % (32.4-45.2); O2 CONTENT 1.40 % vol
[2025-04-08 06:22] LABS: VENT MODE A/C; VENT RATE 18
[2025-04-08] MEDS: NOREPINEPHRINE BITARTRATE 4,000 MCG in DEXTROSE 5%-WATER - 496 ML IV SCH (06:25)
[2025-04-08 06:41] LABS: MCHC 30.2 g/dl (32.2-35.5); MEAN CELL VOLUME 90.3 fl (79.4-94.8); MEAN PLT VOLUME 8.8 fl (9.4-12.3); RDW 13.7 % (12.4-16.6)
[2025-04-08] MEDS ORDERED: PIPERACILLIN/TAZOBACTAM 3.375 GM VIAL IVPB ONE (10:20)
[2025-04-08] MEDS: VANCOMYCIN/WATER FOR INJ (PEG) 1,000 MG/200 ML BAG IVPB SCH (10:29)
[2025-04-08] MEDS: PANTOPRAZOLE SODIUM 40 MG VIAL IVPUSH SCH (10:29)
[2025-04-08] MEDS: POLYETHYLENE GLYCOL (HEALTHYLAX) 3350 17 GM PACKET PO SCH (10:30)
[2025-04-08] MEDS: CEFEPIME HCL/D5W 2 GM/50 ML BAG IVPB SCH (10:31)
[2025-04-08] MEDS ORDERED: ONDANSETRON 4 MG/2 ML VIAL IVPUSH PRN (13:29)
[2025-04-08] MEDS: LETROZOLE 2.5 MG TABLET (FP) PO SCH (14:14)
[2025-04-08] MEDS: CEFEPIME HCL 2 GM VIAL (RESTRICTED TO ID) IVPB SCH (14:15)
[2025-04-08] MEDS: FENTANYL NS IVPB 500 MCG/100 ML BAG IVPB SCH (14:51)
[2025-04-08] MEDS: SENNOSIDES 8.8 MG/5 ML SYRUP PO SCH (21:56)
[2025-04-09 07:02] LABS: ARTERIAL BLD GAS O2 SATURATION 99.1 % (95-98); ARTERIAL BLOOD GAS BASE EXCESS 2.6 mmol/L (-2-2); ARTERIAL BLOOD GAS PCO2 40.40 mmHg (35-45); ARTERIAL BLOOD GAS PO2 159.3 mmHg (80-100); BG HCT 30.0 % (32.4-45.2)
[2025-04-09 07:07] LABS: VENT MODE A/C
[2025-04-09 07:08] LABS: VENT RATE 16
[2025-04-09 07:24] LABS: ABSOLUTE IMMATURE GRANULOCYTES 0.04 x10^3/uL (0.0-0.031); BASOPHILS # 0.01 x10^3/uL (0.01-0.08); EOSINOPHIL % 0.0 % (0.7-5.8); EOSINOPHILS # 0.00 x10^3/uL (0.04-0.36); MCHC 29.9 g/dl (32.2-35.5); MEAN CELL VOLUME 90.8 fl (79.4-94.8); MEAN PLT VOLUME 9.7 fl (9.4-12.3); MONOCYTE # 0.35 x10^3/uL (0.24-0.86); MONOCYTE % 5.0 % (4.7-12.5); RDW 14.1 % (12.4-16.6)
[2025-04-09 07:51] LABS: GLUCOSE,RANDOM 141.0 mg/dL (74-106)
[2025-04-09 07:55] LABS: CO2 30.0 mmol/L (21-32); CREATININE 0.3 mg/dL (0.55-1.3)
[2025-04-09] MEDS: CEFEPIME HCL 2 GM VIAL (RESTRICTED TO ID) IVPB SCH (13:19)
[2025-04-09] MEDS: MAGNESIUM SULFATE IN WATER 2 GM/50 ML IVPB IVPB ONE (14:15)
[2025-04-10] MEDS ORDERED: PIPERACILLIN/TAZOB 3.375 GM 3.375 GM in DEXTROSE 5%-WATER - 50 ML IVPB SCH (02:00)
[2025-04-10 06:39] LABS: MCHC 30.2 g/dl (32.2-35.5); MEAN CELL VOLUME 90.2 fl (79.4-94.8); MEAN PLT VOLUME 9.2 fl (9.4-12.3); RDW 13.9 % (12.4-16.6)
[2025-04-10 07:29] LABS: CO2 30.0 mmol/L (21-32); GLUCOSE,RANDOM 123.0 mg/dL (74-106)
[2025-04-10 07:31] LABS: CREATININE 0.3 mg/dL (0.55-1.3)
[2025-04-10] MEDS ORDERED: VANCOMYCIN/WATER FOR INJ (PEG) 1,000 MG/200 ML BAG IVPB SCH (08:00)
[2025-04-11 06:44] LABS: ABSOLUTE IMMATURE GRANULOCYTES 0.05 x10^3/uL (0.0-0.031); BASOPHILS # 0.00 x10^3/uL (0.01-0.08); EOSINOPHIL % 0.0 % (0.7-5.8); EOSINOPHILS # 0.00 x10^3/uL (0.04-0.36); MCHC 30.1 g/dl (32.2-35.5); MEAN CELL VOLUME 90.0 fl (79.4-94.8); MEAN PLT VOLUME 9.3 fl (9.4-12.3); MONOCYTE # 0.36 x10^3/uL (0.24-0.86); MONOCYTE % 5.1 % (4.7-12.5); RDW 13.8 % (12.4-16.6)
[2025-04-11 06:53] LABS: INR 1.09 (0.83-1.09); PROTHROMBIN TIME (PATIENT) 12.0 SEC (9.7-13.0)
[2025-04-11 07:14] LABS: CO2 29.0 mmol/L (21-32); GLUCOSE,RANDOM 94.0 mg/dL (74-106)
[2025-04-11 07:17] LABS: CREATININE 0.2 mg/dL (0.55-1.3); SGOT/AST 9.0 U/L (15-37); SGPT/ALT 8.0 U/L (13-61)
[2025-04-11 07:19] LABS: TOT PROT 5.0 g/dl (6.4-8.2)
[2025-04-11 07:20] LABS: ALK PHOS 77.0 U/L (45-117)
[2025-04-11 14:53] VITALS: BMI 16.9
[2025-04-11] MEDS: AMINO ACIDS/PROTEIN HYDROLYS 30 ML LIQUID.PKT PO SCH (17:03)
[2025-04-11] MEDS: VANCOMYCIN/WATER FOR INJ (PEG) 1,000 MG/200 ML BAG IVPB SCH (21:45)
[2025-04-11] MEDS: HEPARIN NA (PORCINE) 5,000 UNITS/ML 1ML VIAL SQ SCH (21:45)
[2025-04-12 06:50] LABS: MCHC 30.6 g/dl (32.2-35.5); MEAN CELL VOLUME 88.5 fl (79.4-94.8); MEAN PLT VOLUME 9.7 fl (9.4-12.3); RDW 13.5 % (12.4-16.6)
[2025-04-12 07:12] LABS: CO2 31.0 mmol/L (21-32); GLUCOSE,RANDOM 115.0 mg/dL (74-106)
[2025-04-12 07:28] LABS: CREATININE 0.2 mg/dL (0.55-1.3)
[2025-04-12 07:31] LABS: ALK PHOS 87.0 U/L (45-117); TOT PROT 5.6 g/dl (6.4-8.2)
[2025-04-12 07:58] LABS: SGOT/AST 12.0 U/L (15-37); SGPT/ALT 8.0 U/L (13-61)
[2025-04-12] MEDS ORDERED: ACETYLCYSTEINE 20% 200MG/ML 4 ML VIAL *FOR ORAL / INH USE ONLY NEB ONE (08:01)
[2025-04-12] MEDS ORDERED: ALBUTEROL SO4 0.083% IH SOL 2.5 MG/3 ML VIAL.NEB. NEB ONE (08:03)
[2025-04-12] MEDS ORDERED: RAPID SEQUENCE INTUBATION KIT NR ONE (08:23)
[2025-04-12] MEDS ORDERED: DEXMEDETOMIDINE PREMIX 400 MCG/100 ML BAG IVPB ONE (08:24)
[2025-04-12] MEDS: ACETYLCYSTEINE 20% 200MG/ML 4 ML VIAL *FOR ORAL / INH USE ONLY NEB SCH (08:35)
[2025-04-12] MEDS: ALBUTEROL SO4 0.083% IH SOL 2.5 MG/3 ML VIAL.NEB. NEB SCH (08:35)
[2025-04-12] MEDS ORDERED: MIDAZOLAM HCL 5 MG/1 ML Single Dose Vial ONE (08:39)
[2025-04-12] MEDS ORDERED: NOREPINEPHRINE BITARTRATE 4 MG/4 ML ML IV ONE (08:51)
[2025-04-12] MEDS: methylPREDNISolone NA SUCC 125 MG/2 ML VIAL IVPUSH ONE (09:54)
[2025-04-12] MEDS: ASCORBIC ACID 500 MG TABLET (FP) PO SCH (09:56)
[2025-04-12] MEDS: MIDAZOLAM HCL 5 MG/1 ML Single Dose Vial IVPUSH ONE (11:00)
[2025-04-12] MEDS: NOREPINEPHRINE BITARTRATE 4,000 MCG in DEXTROSE 5%-WATER - 496 ML IV SCH (11:00)
[2025-04-12] MEDS: DEXMEDETOMIDINE PREMIX 400 MCG/100 ML BAG IVPB SCH (11:30)
[2025-04-12 15:59] LABS: ARTERIAL BLD GAS O2 SATURATION 99.2 % (95-98); ARTERIAL BLOOD GAS BASE EXCESS 0.8 mmol/L (-2-2); ARTERIAL BLOOD GAS PCO2 39.00 mmHg (35-45); ARTERIAL BLOOD GAS PO2 166.7 mmHg (80-100); BG HCT 31.0 % (32.4-45.2)
[2025-04-12 16:02] LABS: VENT MODE AVAPS; VENT RATE 12
[2025-04-12] MEDS: POTASSIUM PHOSPHATE 20 MM in SODIUM CHLORIDE 250 ML IVPB ONE (17:53)
[2025-04-13 09:27] LABS: MCHC 29.9 g/dl (32.2-35.5); MEAN CELL VOLUME 90.9 fl (79.4-94.8); MEAN PLT VOLUME 9.3 fl (9.4-12.3); RDW 13.9 % (12.4-16.6)
[2025-04-13 10:08] LABS: CO2 30.0 mmol/L (21-32); GLUCOSE,RANDOM 178.0 mg/dL (74-106)
[2025-04-13 10:10] LABS: SGPT/ALT 6.0 U/L (13-61)
[2025-04-13 10:11] LABS: SGOT/AST 8.0 U/L (15-37)
[2025-04-13 10:12] LABS: CREATININE 0.2 mg/dL (0.55-1.3); TOT PROT 5.0 g/dl (6.4-8.2)
[2025-04-13 10:13] LABS: ALK PHOS 74.0 U/L (45-117)
[2025-04-13] MEDS ORDERED: CALCIUM GLUCONATE 10% - 1,000 MG/10 ML VIAL ONE (14:13)
[2025-04-13 14:29] LABS: ARTERIAL BLD GAS O2 SATURATION 97.9 % (95-98); ARTERIAL BLOOD GAS BASE EXCESS 4.0 mmol/L (-2-2); ARTERIAL BLOOD GAS PCO2 52.80 mmHg (35-45); ARTERIAL BLOOD GAS PO2 112.0 mmHg (80-100); BG HCT 31.0 % (32.4-45.2); O2 CONTENT 1.44 % vol
[2025-04-13 14:46] LABS: ALLENS TEST POSITIVE
[2025-04-13 14:47] LABS: VENT MODE P-A/C; VENT RATE 12
[2025-04-13 21:25] LABS: MCHC 29.3 g/dl (32.2-35.5); MEAN CELL VOLUME 91.9 fl (79.4-94.8); MEAN PLT VOLUME 9.6 fl (9.4-12.3); RDW 13.9 % (12.4-16.6)
[2025-04-13 21:35] LABS: INR 1.03 (0.83-1.09); PROTHROMBIN TIME (PATIENT) 11.2 SEC (9.7-13.0)
[2025-04-13 22:53] LABS: ARTERIAL BLD GAS O2 SATURATION 98.0 % (95-98); ARTERIAL BLOOD GAS BASE EXCESS 4.1 mmol/L (-2-2); ARTERIAL BLOOD GAS PCO2 49.70 mmHg (35-45); ARTERIAL BLOOD GAS PO2 110.2 mmHg (80-100); BG HCT 30.0 % (32.4-45.2); O2 CONTENT 1.41 % vol
[2025-04-13 22:55] LABS: VENT MODE AC; VENT RATE 16
[2025-04-14 04:57] LABS: MCHC 30.2 g/dl (32.2-35.5); MEAN CELL VOLUME 89.5 fl (79.4-94.8); MEAN PLT VOLUME 9.4 fl (9.4-12.3); RDW 14.0 % (12.4-16.6)
[2025-04-14 06:39] LABS: MCHC 30.0 g/dl (32.2-35.5); MEAN CELL VOLUME 89.6 fl (79.4-94.8); MEAN PLT VOLUME 9.7 fl (9.4-12.3); RDW 13.8 % (12.4-16.6)
[2025-04-14 07:07] LABS: GLUCOSE,RANDOM 181.0 mg/dL (74-106)
[2025-04-14 07:08] LABS: CO2 34.0 mmol/L (21-32)
[2025-04-14 07:09] LABS: CREATININE 0.2 mg/dL (0.55-1.3)
[2025-04-14 07:10] LABS: SGOT/AST 7.0 U/L (15-37); SGPT/ALT 6.0 U/L (13-61)
[2025-04-14 07:11] LABS: TOT PROT 5.2 g/dl (6.4-8.2)
[2025-04-14 07:12] LABS: ALK PHOS 77.0 U/L (45-117)
[2025-04-14 12:29] LABS: MCHC 29.7 g/dl (32.2-35.5); MEAN CELL VOLUME 92.1 fl (79.4-94.8); MEAN PLT VOLUME 9.8 fl (9.4-12.3); RDW 13.8 % (12.4-16.6)
[2025-04-14] MEDS: THIAMINE HCL 200 MG/2 ML VIAL IVPB SCH (12:59)
[2025-04-15 07:08] LABS: MCHC 29.4 g/dl (32.2-35.5); MEAN CELL VOLUME 91.3 fl (79.4-94.8); MEAN PLT VOLUME 9.6 fl (9.4-12.3); RDW 14.1 % (12.4-16.6)
[2025-04-15 07:53] LABS: CO2 33.0 mmol/L (21-32); CREATININE 0.2 mg/dL (0.55-1.3); GLUCOSE,RANDOM 191.0 mg/dL (74-106); SGOT/AST 7.0 U/L (15-37); SGPT/ALT 8.0 U/L (13-61)
[2025-04-15 07:54] LABS: TOT PROT 5.0 g/dl (6.4-8.2)
[2025-04-15 07:56] LABS: ALK PHOS 73.0 U/L (45-117)
[2025-04-15] MEDS: AMINO ACIDS/PROTEIN HYDROLYS 30 ML LIQUID.PKT PO SCH (09:21)
[2025-04-15] MEDS: PIPERACILLIN/TAZOB 3.375 GM 3.375 GM in DEXTROSE 5%-WATER - 50 ML IVPB SCH (14:45)
[2025-04-15] MEDS ORDERED: PIPERACILLIN/TAZOBACTAM 3.375 GM VIAL IVPB ONE ×2 (16:07→17:18)
[2025-04-15] MEDS: ENOXAPARIN NA (PORCINE) 30 MG/0.3 ML DISP.SYRIN SQ SCH (17:12)
[2025-04-15] MEDS ORDERED: NOREPINEPHRINE BITARTRATE 4 MG/4 ML ML IV ONE (19:47)
[2025-04-15] MEDS: VANCOMYCIN/WATER FOR INJ (PEG) 750 MG/150 ML BAG IVPB SCH (21:55)
[2025-04-16 06:36] LABS: MCHC 29.7 g/dl (32.2-35.5); MEAN CELL VOLUME 91.4 fl (79.4-94.8); MEAN PLT VOLUME 9.6 fl (9.4-12.3); RDW 14.2 % (12.4-16.6)
[2025-04-16 06:58] LABS: CO2 39.0 mmol/L (21-32); GLUCOSE,RANDOM 213.0 mg/dL (74-106)
[2025-04-16 07:01] LABS: CREATININE 0.3 mg/dL (0.55-1.3); SGOT/AST 9.0 U/L (15-37); SGPT/ALT 8.0 U/L (13-61)
[2025-04-16 07:03] LABS: TOT PROT 5.1 g/dl (6.4-8.2)
[2025-04-16 07:04] LABS: ALK PHOS 74.0 U/L (45-117)
[2025-04-16] MEDS ORDERED: RAPID SEQUENCE INTUBATION KIT NR ONE (13:17)
[2025-04-16] MEDS: FUROSEMIDE 40 MG/4 ML INJECTABLE VIAL IVPUSH ONE (13:59)
[2025-04-16] MEDS ORDERED: NOREPINEPHRINE BITARTRATE 4 MG/4 ML ML IV ONE (21:09)
[2025-04-17 06:53] LABS: MCHC 29.0 g/dl (32.2-35.5); MEAN CELL VOLUME 92.7 fl (79.4-94.8); MEAN PLT VOLUME 9.9 fl (9.4-12.3); RDW 14.3 % (12.4-16.6)
[2025-04-17 07:08] LABS: INR 1.14 (0.83-1.09); PROTHROMBIN TIME (PATIENT) 12.5 SEC (9.7-13.0)
[2025-04-17 07:13] LABS: CO2 36.0 mmol/L (21-32); GLUCOSE,RANDOM 225.0 mg/dL (74-106)
[2025-04-17 07:15] LABS: SGPT/ALT 7.0 U/L (13-61)
[2025-04-17 07:16] LABS: CREATININE 0.3 mg/dL (0.55-1.3); SGOT/AST 12.0 U/L (15-37)
[2025-04-17 07:17] LABS: TOT PROT 5.0 g/dl (6.4-8.2)
[2025-04-17 07:18] LABS: ALK PHOS 73.0 U/L (45-117)
[2025-04-17 12:53] LABS: ARTERIAL BLD GAS O2 SATURATION 95.7 % (95-98); ARTERIAL BLOOD GAS BASE EXCESS 9.1 mmol/L (-2-2); ARTERIAL BLOOD GAS PCO2 54.30 mmHg (35-45); ARTERIAL BLOOD GAS PO2 78.8 mmHg (80-100); BG HCT 37.0 % (32.4-45.2); O2 CONTENT 1.68 % vol
[2025-04-17 12:57] LABS: VENT MODE A/C; VENT RATE 20
[2025-04-17] MEDS: KCL 10 MEQ IVPB 10 MEQ/100 ML INFUS.BAG IVPB SCH (15:46)
[2025-04-17] MEDS: ALBUTEROL SO4 2.5/IPRATROPIUM 0.5 INH SOL 3 ML VIAL.NEB. NEB SCH (19:57)
[2025-04-17] MEDS: BANATROL PLUS POWDER PACKET PO SCH (21:27)
[2025-04-18 06:57] LABS: MCHC 29.6 g/dl (32.2-35.5); MEAN CELL VOLUME 89.7 fl (79.4-94.8); MEAN PLT VOLUME 9.6 fl (9.4-12.3); RDW 14.5 % (12.4-16.6)
[2025-04-18 07:19] LABS: CO2 36.0 mmol/L (21-32); GLUCOSE,RANDOM 287.0 mg/dL (74-106)
[2025-04-18 07:22] LABS: CREATININE 0.3 mg/dL (0.55-1.3); SGOT/AST 6.0 U/L (15-37); SGPT/ALT 8.0 U/L (13-61)
[2025-04-18 07:24] LABS: TOT PROT 4.7 g/dl (6.4-8.2)
[2025-04-18 07:25] LABS: ALK PHOS 66.0 U/L (45-117)
[2025-04-18] MEDS: KCL 10 MEQ IVPB 10 MEQ/100 ML INFUS.BAG IVPB SCH (09:08)
[2025-04-18] MEDS: LETROZOLE 2.5 MG TABLET (FP) GT SCH (09:09)
[2025-04-18] MEDS: ALBUTEROL SO4 2.5/IPRATROPIUM 0.5 INH SOL 3 ML VIAL.NEB. NEB SCH (12:00)
[2025-04-19 06:56] LABS: MCHC 30.4 g/dl (32.2-35.5); MEAN CELL VOLUME 88.8 fl (79.4-94.8); MEAN PLT VOLUME 10.3 fl (9.4-12.3); RDW 14.8 % (12.4-16.6)
[2025-04-19 07:17] LABS: CO2 36.0 mmol/L (21-32)
[2025-04-19 07:18] LABS: GLUCOSE,RANDOM 358.0 mg/dL (74-106)
[2025-04-19 07:20] LABS: SGOT/AST 8.0 U/L (15-37); SGPT/ALT 12.0 U/L (13-61)
[2025-04-19 07:21] LABS: CREATININE 0.3 mg/dL (0.55-1.3)
[2025-04-19 07:22] LABS: TOT PROT 4.8 g/dl (6.4-8.2)
[2025-04-19 07:23] LABS: ALK PHOS 72.0 U/L (45-117)
[2025-04-19] MEDS: INSULIN ASPART SLIDING SCALE (NOVOLOG) 1 VIAL SQ SCH (11:55)
[2025-04-19] MEDS ORDERED: INSULIN ASPART SLIDING SCALE (NOVOLOG) 1 VIAL SQ ONE (16:24)
[2025-04-20 06:53] LABS: MCHC 30.6 g/dl (32.2-35.5); MEAN CELL VOLUME 88.1 fl (79.4-94.8); MEAN PLT VOLUME 10.1 fl (9.4-12.3); RDW 14.8 % (12.4-16.6)
[2025-04-20 07:13] LABS: CO2 38.0 mmol/L (21-32); GLUCOSE,RANDOM 302.0 mg/dL (74-106)
[2025-04-20 07:16] LABS: CREATININE 0.3 mg/dL (0.55-1.3); SGOT/AST 14.0 U/L (15-37); SGPT/ALT 21.0 U/L (13-61)
[2025-04-20 07:18] LABS: TOT PROT 4.9 g/dl (6.4-8.2)
[2025-04-20 07:19] LABS: ALK PHOS 72.0 U/L (45-117)
[2025-04-20] MEDS: methylPREDNISolone NA SUCC 40 MG/1 ML VIAL IVPUSH SCH ×2 (12:45)
[2025-04-20] MEDS: NAPH,MB-DB/K PH,MBDB POWDER PACKET PO SCH (14:44)
[2025-04-20] MEDS ORDERED: POLYETHYLENE GLYCOL (HEALTHYLAX) 3350 17 GM PACKET PO PRN (16:43)
[2025-04-21 09:16] LABS: ABSOLUTE IMMATURE GRANULOCYTES 0.05 x10^3/uL (0.0-0.031); BASOPHILS # 0.00 x10^3/uL (0.01-0.08); EOSINOPHIL % 0.6 % (0.7-5.8); EOSINOPHILS # 0.05 x10^3/uL (0.04-0.36); MCHC 29.1 g/dl (32.2-35.5); MEAN CELL VOLUME 90.0 fl (79.4-94.8); MEAN PLT VOLUME 9.6 fl (9.4-12.3); MONOCYTE # 0.64 x10^3/uL (0.24-0.86); MONOCYTE % 7.2 % (4.7-12.5); RDW 15.2 % (12.4-16.6)
[2025-04-21] MEDS: AMINO ACIDS/PROTEIN HYDROLYS 30 ML LIQUID.PKT PO SCH (10:01)
[2025-04-21 10:18] LABS: CO2 38 mmol/L (21-32); GLUCOSE,RANDOM 153 mg/dL (74-106)
[2025-04-21 10:20] LABS: CREATININE 0.2 mg/dL (0.55-1.3); SGOT/AST 13 U/L (15-37); SGPT/ALT 25 U/L (13-61)
[2025-04-21 10:22] LABS: ALK PHOS 58 U/L (45-117); TOT PROT 4.4 g/dl (6.4-8.2)
[2025-04-21] MEDS: KCL 10 MEQ IVPB 10 MEQ/100 ML INFUS.BAG IVPB SCH (12:17)
[2025-04-21] MEDS: BANATROL PLUS POWDER PACKET PEG SCH (15:01)
[2025-04-22 07:57] LABS: CO2 38.0 mmol/L (21-32); GLUCOSE,RANDOM 166.0 mg/dL (74-106)
[2025-04-22 07:59] LABS: CREATININE 0.2 mg/dL (0.55-1.3)
[2025-04-22 08:13] LABS: ABSOLUTE IMMATURE GRANULOCYTES 0.07 x10^3/uL (0.0-0.031); BASOPHILS # 0.01 x10^3/uL (0.01-0.08); EOSINOPHIL % 1.8 % (0.7-5.8); EOSINOPHILS # 0.18 x10^3/uL (0.04-0.36); MCHC 29.1 g/dl (32.2-35.5); MEAN CELL VOLUME 90.9 fl (79.4-94.8); MEAN PLT VOLUME 10.9 fl (9.4-12.3); MONOCYTE # 0.57 x10^3/uL (0.24-0.86); MONOCYTE % 5.6 % (4.7-12.5); RDW 15.3 % (12.4-16.6)
[2025-04-22] MEDS: MAGNESIUM SULFATE IN WATER 2 GM/50 ML IVPB IVPB ONE (10:09)
[2025-04-22] MEDS: KCL 10 MEQ IVPB 10 MEQ/100 ML INFUS.BAG IVPB SCH (10:09)
[2025-04-22] MEDS: VANCOMYCIN/WATER FOR INJ (PEG) 750 MG/150 ML BAG IVPB SCH (21:18)
[2025-04-23] MEDS: MIDODRINE HCL 5 MG TABLET NGT SCH (01:13)
[2025-04-23 08:13] LABS: ABSOLUTE IMMATURE GRANULOCYTES 0.05 x10^3/uL (0.0-0.031); BASOPHILS # 0.00 x10^3/uL (0.01-0.08); EOSINOPHIL % 2.4 % (0.7-5.8); EOSINOPHILS # 0.22 x10^3/uL (0.04-0.36); MCHC 29.6 g/dl (32.2-35.5); MEAN CELL VOLUME 91.5 fl (79.4-94.8); MEAN PLT VOLUME 9.8 fl (9.4-12.3); MONOCYTE # 0.47 x10^3/uL (0.24-0.86); MONOCYTE % 5.2 % (4.7-12.5); RDW 15.3 % (12.4-16.6)
[2025-04-23 08:38] LABS: CO2 36.0 mmol/L (21-32); GLUCOSE,RANDOM 167.0 mg/dL (74-106)
[2025-04-23 08:41] LABS: CREATININE 0.2 mg/dL (0.55-1.3); SGOT/AST 11.0 U/L (15-37); SGPT/ALT 18.0 U/L (13-61)
[2025-04-23 08:44] LABS: ALK PHOS 71.0 U/L (45-117); TOT PROT 4.3 g/dl (6.4-8.2)
[2025-04-23] MEDS: SCOPOLAMINE HYDROBROMIDE 1 PATCH PATCH.TD72 TD SCH (09:36)
[2025-04-23] MEDS: POTASSIUM CHLORIDE ORAL LIQUID 20 MEQ/15 ML NGT ONE (10:17)
[2025-04-23] MEDS: KCL 10 MEQ IVPB 10 MEQ/100 ML INFUS.BAG IVPB SCH (10:18)
[2025-04-24 07:29] LABS: ABSOLUTE IMMATURE GRANULOCYTES 0.05 x10^3/uL (0.0-0.031); BASOPHILS # 0.01 x10^3/uL (0.01-0.08); EOSINOPHIL % 2.5 % (0.7-5.8); EOSINOPHILS # 0.21 x10^3/uL (0.04-0.36); MCHC 29.9 g/dl (32.2-35.5); MEAN CELL VOLUME 90.9 fl (79.4-94.8); MEAN PLT VOLUME 9.9 fl (9.4-12.3); MONOCYTE # 0.46 x10^3/uL (0.24-0.86); MONOCYTE % 5.5 % (4.7-12.5); RDW 15.5 % (12.4-16.6)
[2025-04-24 07:51] LABS: CO2 33.0 mmol/L (21-32); GLUCOSE,RANDOM 87.0 mg/dL (74-106)
[2025-04-24 07:54] LABS: CREATININE 0.2 mg/dL (0.55-1.3); SGOT/AST 8.0 U/L (15-37); SGPT/ALT 15.0 U/L (13-61)
[2025-04-24 07:55] LABS: TOT PROT 4.4 g/dl (6.4-8.2)
[2025-04-24 07:56] LABS: ALK PHOS 56.0 U/L (45-117)
[2025-04-24] MEDS ORDERED: NOREPINEPHRINE BITARTRATE 4 MG/4 ML ML IV ONE (10:10)
[2025-04-24] MEDS: NOREPINEPHRINE BITARTRATE 4,000 MCG in DEXTROSE 5%-WATER - 496 ML IV SCH (10:19)
[2025-04-24] MEDS: MIDAZOLAM HCL 5 MG/1 ML Single Dose Vial IVPUSH PRN (10:28)
[2025-04-24] MEDS ORDERED: MIDAZOLAM HCL 5 MG/1 ML Single Dose Vial ONE (10:29)
[2025-04-24 19:49] LABS: EPI CELLS 9 /uL (0-25.1); HYALINE CASTS 0 /uL (0-3.1); URINE APPEARANCE CLEAR; URINE BACTERIA 5 /uL (0-1359); URINE BILIRUBIN NEGATIVE (NEGATIVE); URINE COLOR YELLOW; URINE GLUCOSE (UA) NEGATIVE (NEGATIVE); URINE KETONE NEGATIVE (NEGATIVE); URINE LEUK ESTERASE 1+ (NEGATIVE); URINE NITRITE NEGATIVE (NEGATIVE); URINE PROTEIN NEGATIVE (NEGATIVE); URINE RBC 9 /uL (0-23.9); URINE UROBILINOGEN 0.2 mg/dL (0.2-1.0); URINE WBC 40 /uL (0-25.8)
[2025-04-24 20:22] LABS: YEAST FEW (NEGATIVE)
[2025-04-25 06:45] LABS: ABSOLUTE IMMATURE GRANULOCYTES 0.03 x10^3/uL (0.0-0.031); BASOPHILS # 0.01 x10^3/uL (0.01-0.08); EOSINOPHIL % 1.4 % (0.7-5.8); EOSINOPHILS # 0.10 x10^3/uL (0.04-0.36); MCHC 30.0 g/dl (32.2-35.5); MEAN CELL VOLUME 92.3 fl (79.4-94.8); MEAN PLT VOLUME 9.5 fl (9.4-12.3); MONOCYTE # 0.44 x10^3/uL (0.24-0.86); MONOCYTE % 6.1 % (4.7-12.5); RDW 15.6 % (12.4-16.6)
[2025-04-25 08:04] LABS: CO2 33.0 mmol/L (21-32); GLUCOSE,RANDOM 151.0 mg/dL (74-106)
[2025-04-25 08:07] LABS: CREATININE 0.2 mg/dL (0.55-1.3); SGOT/AST 7.0 U/L (15-37); SGPT/ALT 15.0 U/L (13-61)
[2025-04-25 08:09] LABS: TOT PROT 4.4 g/dl (6.4-8.2)
[2025-04-25 08:10] LABS: ALK PHOS 72.0 U/L (45-117)
[2025-04-25 14:13] LABS: INR 1.04 (0.83-1.09); PROTHROMBIN TIME (PATIENT) 11.3 SEC (9.7-13.0)
[2025-04-25] MEDS ORDERED: fentaNYL CITRATE 250 MCG/5 ML VIAL ONE (22:34)
[2025-04-26 07:52] LABS: ABSOLUTE IMMATURE GRANULOCYTES 0.03 x10^3/uL (0.0-0.031); BASOPHILS # 0.01 x10^3/uL (0.01-0.08); EOSINOPHIL % 0.1 % (0.7-5.8); EOSINOPHILS # 0.01 x10^3/uL (0.04-0.36); MCHC 29.2 g/dl (32.2-35.5); MEAN CELL VOLUME 94.6 fl (79.4-94.8); MEAN PLT VOLUME 9.8 fl (9.4-12.3); MONOCYTE # 0.40 x10^3/uL (0.24-0.86); MONOCYTE % 5.7 % (4.7-12.5); RDW 16.0 % (12.4-16.6)
[2025-04-26] MEDS ORDERED: ROCURONIUM BROMIDE 50 MG/5 ML VIAL IVPUSH PRN (08:00)
[2025-04-26] MEDS ORDERED: MIDAZOLAM HCL 5 MG/1 ML Single Dose Vial IVPUSH PRN (08:00)
[2025-04-26 08:09] LABS: CO2 36 mmol/L (21-32); GLUCOSE,RANDOM 121 mg/dL (74-106)
[2025-04-26 08:10] LABS: CREATININE < 0.2 mg/dL (0.55-1.3)
[2025-04-26] MEDS ORDERED: methylPREDNISolone NA SUCC 40 MG/1 ML VIAL IVPUSH SCH (10:15)
[2025-04-26] MEDS ORDERED: predniSONE 5 MG/5 ML ORAL SOLN- UNIT-DOSE CUP PO SCH (10:15)
[2025-04-26] MEDS: predniSONE 5 MG/5 ML ORAL SOLN- UNIT-DOSE CUP NGT SCH (10:51)
[2025-04-27 07:24] LABS: ABSOLUTE IMMATURE GRANULOCYTES 0.04 x10^3/uL (0.0-0.031); BASOPHILS # 0.01 x10^3/uL (0.01-0.08); EOSINOPHIL % 0.1 % (0.7-5.8); EOSINOPHILS # 0.01 x10^3/uL (0.04-0.36); MCHC 28.8 g/dl (32.2-35.5); MEAN CELL VOLUME 95.4 fl (79.4-94.8); MEAN PLT VOLUME 9.8 fl (9.4-12.3); MONOCYTE # 0.48 x10^3/uL (0.24-0.86); MONOCYTE % 5.9 % (4.7-12.5); RDW 16.5 % (12.4-16.6)
[2025-04-27] MEDS ORDERED: MIDAZOLAM HCL 5 MG/1 ML Single Dose Vial IVPUSH PRN (08:00)
[2025-04-27] MEDS ORDERED: ROCURONIUM BROMIDE 50 MG/5 ML VIAL IVPUSH PRN (08:00)
[2025-04-27 08:13] LABS: CO2 36 mmol/L (21-32)
[2025-04-27 08:14] LABS: GLUCOSE,RANDOM 123 mg/dL (74-106)
[2025-04-27 08:16] LABS: SGOT/AST 6 U/L (15-37); SGPT/ALT 14 U/L (13-61)
[2025-04-27 08:17] LABS: CREATININE < 0.2 mg/dL (0.55-1.3)
[2025-04-27 08:18] LABS: TOT PROT 4.4 g/dl (6.4-8.2)
[2025-04-27] MEDS ORDERED: PROPOFOL 1,000,000 MCG/100 ML VIAL ONE (08:18)
[2025-04-27 08:19] LABS: ALK PHOS 59 U/L (45-117)
[2025-04-27] MEDS ORDERED: ROCURONIUM BROMIDE 50 MG/5 ML VIAL ONE (09:03)
[2025-04-27] MEDS: ENOXAPARIN NA (PORCINE) 30 MG/0.3 ML DISP.SYRIN SQ ONE (18:04)
[2025-04-28 07:21] LABS: ABSOLUTE IMMATURE GRANULOCYTES 0.02 x10^3/uL (0.0-0.031); BASOPHILS # 0.01 x10^3/uL (0.01-0.08); EOSINOPHIL % 0.9 % (0.7-5.8); EOSINOPHILS # 0.05 x10^3/uL (0.04-0.36); MCHC 28.6 g/dl (32.2-35.5); MEAN CELL VOLUME 95.1 fl (79.4-94.8); MEAN PLT VOLUME 10.3 fl (9.4-12.3); MONOCYTE # 0.23 x10^3/uL (0.24-0.86); MONOCYTE % 4.2 % (4.7-12.5); RDW 16.8 % (12.4-16.6)
[2025-04-28 07:46] LABS: CO2 34 mmol/L (21-32); GLUCOSE,RANDOM 131 mg/dL (74-106)
[2025-04-28 07:48] LABS: SGOT/AST 7 U/L (15-37); SGPT/ALT 13 U/L (13-61)
[2025-04-28 07:49] LABS: CREATININE < 0.2 mg/dL (0.55-1.3)
[2025-04-28 07:50] LABS: TOT PROT 4.8 g/dl (6.4-8.2)
[2025-04-28 07:51] LABS: ALK PHOS 79 U/L (45-117)
[2025-04-28] MEDS: ENOXAPARIN NA (PORCINE) 30 MG/0.3 ML DISP.SYRIN SQ SCH ×2 (07:57→09:47)
[2025-04-28] MEDS: ENOXAPARIN NA (PORCINE) 30 MG/0.3 ML DISP.SYRIN SQ ONE (07:57)
[2025-04-29] MEDS ORDERED: ROCURONIUM BROMIDE 50 MG/5 ML VIAL IVPUSH PRN (08:00)
[2025-04-29] MEDS ORDERED: MIDAZOLAM HCL 5 MG/1 ML Single Dose Vial IVPUSH PRN (08:00)
[2025-04-29 08:19] LABS: ABSOLUTE IMMATURE GRANULOCYTES 0.01 x10^3/uL (0.0-0.031); BASOPHILS # 0.01 x10^3/uL (0.01-0.08); EOSINOPHIL % 2.7 % (0.7-5.8); EOSINOPHILS # 0.14 x10^3/uL (0.04-0.36); MCHC 28.9 g/dl (32.2-35.5); MEAN CELL VOLUME 95.7 fl (79.4-94.8); MEAN PLT VOLUME 9.9 fl (9.4-12.3); MONOCYTE # 0.33 x10^3/uL (0.24-0.86); MONOCYTE % 6.4 % (4.7-12.5); RDW 17.2 % (12.4-16.6)
[2025-04-29 08:29] LABS: INR 1.02 (0.83-1.09); PROTHROMBIN TIME (PATIENT) 11.1 SEC (9.7-13.0)
[2025-04-29 08:46] LABS: CO2 38 mmol/L (21-32); GLUCOSE,RANDOM 77 mg/dL (74-106)
[2025-04-29 08:48] LABS: SGPT/ALT 12 U/L (13-61)
[2025-04-29 08:49] LABS: SGOT/AST 9 U/L (15-37); TOT PROT 4.0 g/dl (6.4-8.2)
[2025-04-29 08:51] LABS: ALK PHOS 65 U/L (45-117)
[2025-04-29 08:57] LABS: CREATININE < 0.2 mg/dL (0.55-1.3)
[2025-04-29] MEDS: predniSONE 5 MG/5 ML ORAL SOLN- UNIT-DOSE CUP NGT SCH (10:04)
[2025-04-29] MEDS: POTASSIUM CHLORIDE ORAL LIQUID 20 MEQ/15 ML PO ONE (10:28)
[2025-04-30 07:23] LABS: MCHC 30.7 g/dl (32.2-35.5); MEAN CELL VOLUME 93.4 fl (79.4-94.8); MEAN PLT VOLUME 10.2 fl (9.4-12.3); RDW 16.3 % (12.4-16.6)
[2025-04-30 07:52] LABS: CO2 37 mmol/L (21-32); GLUCOSE,RANDOM 101 mg/dL (74-106)
[2025-04-30 08:04] LABS: CREATININE < 0.2 mg/dL (0.55-1.3)
[2025-05-01 07:23] LABS: ABSOLUTE IMMATURE GRANULOCYTES 0.01 x10^3/uL (0.0-0.031); BASOPHILS # 0.02 x10^3/uL (0.01-0.08); EOSINOPHIL % 3.3 % (0.7-5.8); EOSINOPHILS # 0.19 x10^3/uL (0.04-0.36); MCHC 30.0 g/dl (32.2-35.5); MEAN CELL VOLUME 95.5 fl (79.4-94.8); MEAN PLT VOLUME 9.8 fl (9.4-12.3); MONOCYTE # 0.31 x10^3/uL (0.24-0.86); MONOCYTE % 5.4 % (4.7-12.5); RDW 16.7 % (12.4-16.6)
[2025-05-01 08:40] LABS: CO2 37 mmol/L (21-32); GLUCOSE,RANDOM 106 mg/dL (74-106)
[2025-05-01 08:43] LABS: SGOT/AST 6 U/L (15-37); SGPT/ALT 9 U/L (13-61)
[2025-05-01 08:44] LABS: TOT PROT 3.8 g/dl (6.4-8.2)
[2025-05-01 08:46] LABS: ALK PHOS 69 U/L (45-117)
[2025-05-01 08:55] LABS: CREATININE < 0.2 mg/dL (0.55-1.3)
[2025-05-01] MEDS: KCL 10 MEQ IVPB 10 MEQ/100 ML INFUS.BAG IVPB SCH (09:43)
[2025-05-01] MEDS ORDERED: fentaNYL CITRATE 250 MCG/5 ML VIAL ONE (16:19)
[2025-05-01] MEDS: ROCURONIUM BROMIDE 50 MG/5 ML VIAL IV PRN (16:45)
[2025-05-01] MEDS: PROPOFOL 200 MG/20 ML VIAL IVPUSH ONE ×2 (17:36→18:35)
[2025-05-01] MEDS: fentaNYL CITRATE 250 MCG/5 ML VIAL IVPUSH ONE (17:36)
[2025-05-02 06:43] LABS: MCHC 29.9 g/dl (32.2-35.5); MEAN CELL VOLUME 96.6 fl (79.4-94.8); MEAN PLT VOLUME 9.7 fl (9.4-12.3); RDW 16.5 % (12.4-16.6)
[2025-05-02 08:27] LABS: CO2 37 mmol/L (21-32); GLUCOSE,RANDOM 102 mg/dL (74-106)
[2025-05-02 08:28] LABS: TOT PROT 4.0 g/dl (6.4-8.2)
[2025-05-02 08:29] LABS: ALK PHOS 69 U/L (45-117); SGOT/AST 6 U/L (15-37); SGPT/ALT 9 U/L (13-61)
[2025-05-02 08:30] LABS: CREATININE < 0.2 mg/dL (0.55-1.3)
[2025-05-02] MEDS: KCL 10 MEQ IVPB 10 MEQ/100 ML INFUS.BAG IVPB SCH (09:10)
[2025-05-02] MEDS: predniSONE 5 MG/5 ML ORAL SOLN- UNIT-DOSE CUP NGT SCH (09:57)
[2025-05-02] MEDS: ENOXAPARIN NA (PORCINE) 40 MG/0.4 ML DISP.SYRIN SQ SCH (09:58)
[2025-05-02] MEDS ORDERED: morphine CARPU-JECT 2 MG/1 ML DISP.SYRIN IVPUSH PRN (10:45)
[2025-05-02] MEDS ORDERED: ONDANSETRON 4 MG/2 ML VIAL IVPUSH PRN (14:13)
[2025-05-02] MEDS ORDERED: POLYETHYLENE GLYCOL (HEALTHYLAX) 3350 17 GM PACKET PO PRN (14:13)
[2025-05-02] MEDS: ALBUTEROL SO4 2.5/IPRATROPIUM 0.5 INH SOL 3 ML VIAL.NEB. NEB SCH (15:40)
[2025-05-02] MEDS: ACETAMINOPHEN 1000 MG/100 ML BAG IVPB SCH (16:34)
[2025-05-02] MEDS: MIDODRINE HCL 5 MG TABLET NGT SCH (18:29)
[2025-05-02] MEDS ORDERED: CHLORHEXIDINE GLUCONATE 4% CLEANSER FOR DECOLONIZATION TP SCH (22:00)
[2025-05-02 23:02] LABS: EPI CELLS 17 /uL (0-25.1); HYALINE CASTS 11 /uL (0-3.1); URINE APPEARANCE TURBID; URINE BACTERIA 80 /uL (0-1359); URINE BILIRUBIN NEGATIVE (NEGATIVE); URINE COLOR YELLOW; URINE GLUCOSE (UA) NEGATIVE (NEGATIVE); URINE KETONE 1+ (NEGATIVE); URINE LEUK ESTERASE 3+ (NEGATIVE); URINE NITRITE NEGATIVE (NEGATIVE); URINE PROTEIN 1+ (NEGATIVE); URINE UROBILINOGEN 1.0 mg/dL (0.2-1.0); URINE WBC 2457 /uL (0-25.8)
[2025-05-02 23:23] LABS: URINE RBC 119.3 /uL (0-23.9); YEAST FEW (NEGATIVE)
[2025-05-03 09:05] LABS: ABSOLUTE IMMATURE GRANULOCYTES 0.02 x10^3/uL (0.0-0.031); BASOPHILS # 0.02 x10^3/uL (0.01-0.08); EOSINOPHIL % 0.4 % (0.7-5.8); EOSINOPHILS # 0.03 x10^3/uL (0.04-0.36); MCHC 30.5 g/dl (32.2-35.5); MEAN CELL VOLUME 93.1 fl (79.4-94.8); MEAN PLT VOLUME 10.3 fl (9.4-12.3); MONOCYTE # 0.37 x10^3/uL (0.24-0.86); MONOCYTE % 5.1 % (4.7-12.5); RDW 16.1 % (12.4-16.6)
[2025-05-03 09:55] LABS: CO2 31 mmol/L (21-32)
[2025-05-03 09:56] LABS: GLUCOSE,RANDOM 83 mg/dL (74-106); SGPT/ALT 8 U/L (13-61)
[2025-05-03 09:57] LABS: SGOT/AST 10 U/L (15-37)
[2025-05-03 09:58] LABS: TOT PROT 4.7 g/dl (6.4-8.2)
[2025-05-03 09:59] LABS: ALK PHOS 79 U/L (45-117)
[2025-05-03] MEDS: PANTOPRAZOLE SODIUM 40 MG VIAL IVPUSH SCH (10:04)
[2025-05-03 10:11] LABS: CREATININE < 0.2 mg/dL (0.55-1.3)
[2025-05-03] MEDS: predniSONE 5 MG/5 ML ORAL SOLN- UNIT-DOSE CUP NGT SCH (11:29)
[2025-05-03] MEDS: ENOXAPARIN NA (PORCINE) 40 MG/0.4 ML DISP.SYRIN SQ SCH (11:29)
[2025-05-03] MEDS: LETROZOLE 2.5 MG TABLET (FP) GT SCH (11:29)
[2025-05-03] MEDS: ASCORBIC ACID 500 MG TABLET (FP) PO SCH (11:29)
[2025-05-03] MEDS: AMINO ACIDS/PROTEIN HYDROLYS 30 ML LIQUID.PKT PO SCH (11:30)
[2025-05-03] MEDS: KCL 10 MEQ IVPB 10 MEQ/100 ML INFUS.BAG IVPB SCH (22:42)
[2025-05-03] MEDS: LACTATED RINGERS SOLUTION 1,000 ML/1,000 ML INFUS.BAG IV SCH (22:57)
[2025-05-04 13:59] LABS: ABSOLUTE IMMATURE GRANULOCYTES 0.04 x10^3/uL (0.0-0.031); BASOPHILS # 0.01 x10^3/uL (0.01-0.08); EOSINOPHIL % 0.1 % (0.7-5.8); EOSINOPHILS # 0.01 x10^3/uL (0.04-0.36); MCHC 30.3 g/dl (32.2-35.5); MEAN CELL VOLUME 94.3 fl (79.4-94.8); MEAN PLT VOLUME 9.7 fl (9.4-12.3); MONOCYTE # 0.40 x10^3/uL (0.24-0.86); MONOCYTE % 5.1 % (4.7-12.5); RDW 15.9 % (12.4-16.6)
[2025-05-04 14:54] LABS: CO2 28 mmol/L (21-32); GLUCOSE,RANDOM 107 mg/dL (74-106)
[2025-05-04 14:56] LABS: SGPT/ALT 10 U/L (13-61)
[2025-05-04 14:57] LABS: CREATININE < 0.2 mg/dL (0.55-1.3); SGOT/AST 9 U/L (15-37)
[2025-05-04 14:58] LABS: TOT PROT 4.5 g/dl (6.4-8.2)
[2025-05-04 15:00] LABS: ALK PHOS 71 U/L (45-117)
[2025-05-04] MEDS: POTASSIUM CHLORIDE ORAL LIQUID 20 MEQ/15 ML PO ONE (16:53)
[2025-05-04] MEDS: POTASSIUM CHLORIDE ORAL LIQUID 20 MEQ/15 ML PO SCH (22:11)
[2025-05-05] MEDS: KCL 10 MEQ IVPB 10 MEQ/100 ML INFUS.BAG IVPB SCH (07:29)
[2025-05-05] MEDS: ACETAMINOPHEN 1000 MG/100 ML BAG IVPB SCH (07:29)
[2025-05-05] MEDS: SCOPOLAMINE HYDROBROMIDE 1 PATCH PATCH.TD72 TD SCH (07:38)
[2025-05-05] MEDS: morphine CARPU-JECT 2 MG/1 ML DISP.SYRIN IVPUSH PRN ×2 (08:26→18:49)
[2025-05-05 09:49] LABS: ABSOLUTE IMMATURE GRANULOCYTES 0.02 x10^3/uL (0.0-0.031); BASOPHILS # 0.02 x10^3/uL (0.01-0.08); EOSINOPHIL % 1.1 % (0.7-5.8); EOSINOPHILS # 0.07 x10^3/uL (0.04-0.36); MCHC 29.8 g/dl (32.2-35.5); MEAN CELL VOLUME 93.5 fl (79.4-94.8); MEAN PLT VOLUME 10.6 fl (9.4-12.3); MONOCYTE # 0.59 x10^3/uL (0.24-0.86); MONOCYTE % 9.1 % (4.7-12.5); RDW 16.0 % (12.4-16.6)
[2025-05-05 10:26] LABS: CO2 28 mmol/L (21-32); GLUCOSE,RANDOM 109 mg/dL (74-106)
[2025-05-05 10:27] LABS: SGOT/AST 7 U/L (15-37)
[2025-05-05 10:28] LABS: CREATININE < 0.2 mg/dL (0.55-1.3)
[2025-05-05 10:29] LABS: SGPT/ALT 9 U/L (13-61)
[2025-05-05 10:30] LABS: TOT PROT 5.0 g/dl (6.4-8.2)
[2025-05-05 10:31] LABS: ALK PHOS 77 U/L (45-117)
[2025-05-05] MEDS ORDERED: ACETAMINOPHEN 650 MG/20.3 ML ORAL SOLUTION (CUPS) NGT PRN (10:41)
[2025-05-05] MEDS: CEFTRIAXONE 1 GM in DEXTROSE 5%-WATER - 50 ML IVPB SCH (14:30)
[2025-05-05] MEDS: MIDODRINE HCL 5 MG TABLET NGT SCH (14:31)
[2025-05-05] MEDS ORDERED: FUROSEMIDE 40 MG/4 ML INJECTABLE VIAL ONE (19:27)
[2025-05-05] MEDS: FUROSEMIDE 40 MG/4 ML INJECTABLE VIAL IVPUSH ONE (19:49)
[2025-05-05 20:12] LABS: N-TERMINAL BNP 1467.5 pg/ml (5-125)
[2025-05-05 20:24] LABS: EPI CELLS 2 /uL (0-25.1); HYALINE CASTS 4 /uL (0-3.1); URINE APPEARANCE TURBID; URINE BACTERIA 43 /uL (0-1359); URINE BILIRUBIN NEGATIVE (NEGATIVE); URINE COLOR YELLOW; URINE GLUCOSE (UA) NEGATIVE (NEGATIVE); URINE KETONE NEGATIVE (NEGATIVE); URINE LEUK ESTERASE 3+ (NEGATIVE); URINE NITRITE NEGATIVE (NEGATIVE); URINE PROTEIN NEGATIVE (NEGATIVE); URINE UROBILINOGEN 0.2 mg/dL (0.2-1.0); URINE WBC 1688 /uL (0-25.8)
[2025-05-05 20:26] LABS: ABSOLUTE IMMATURE GRANULOCYTES 0.04 x10^3/uL (0.0-0.031); BASOPHILS # 0.02 x10^3/uL (0.01-0.08); RDW 15.9 % (12.4-16.6)
[2025-05-05 20:27] LABS: EOSINOPHIL % 0.2 % (0.7-5.8); EOSINOPHILS # 0.02 x10^3/uL (0.04-0.36); IMMATURE PLATELET FRACTION # 13.20 x10^3/uL; MCHC 30.4 g/dl (32.2-35.5); MEAN CELL VOLUME 94.0 fl (79.4-94.8); MEAN PLT VOLUME 10.9 fl (9.4-12.3); MONOCYTE # 0.67 x10^3/uL (0.24-0.86); MONOCYTE % 6.6 % (4.7-12.5)
[2025-05-05] MEDS ORDERED: PIPERACILLIN/TAZOB 4.5 GM 4.5 GM in DEXTROSE 5%-WATER 100 ML IVPB SCH (20:30)
[2025-05-05 21:02] LABS: CO2 28.0 mmol/L (21-32)
[2025-05-05 21:03] LABS: GLUCOSE,RANDOM 148.0 mg/dL (74-106)
[2025-05-05 21:05] LABS: SGPT/ALT 10.0 U/L (13-61)
[2025-05-05 21:06] LABS: CREATININE 0.2 mg/dL (0.55-1.3); SGOT/AST 11.0 U/L (15-37)
[2025-05-05 21:07] LABS: TOT PROT 5.6 g/dl (6.4-8.2)
[2025-05-05 21:08] LABS: ALK PHOS 85.0 U/L (45-117)
[2025-05-05 22:32] LABS: URINE RBC 199.7 /uL (0-23.9); YEAST SEEN (NEGATIVE)
[2025-05-05] MEDS: PIPERACILLIN/TAZOB 4.5 GM 4.5 GM in DEXTROSE 5%-WATER 100 ML IVPB SCH (23:41)
[2025-05-06] MEDS: VANCOMYCIN/WATER FOR INJ (PEG) 750 MG/150 ML BAG IVPB SCH (00:17)
[2025-05-06] MEDS: KCL 10 MEQ IVPB 10 MEQ/100 ML INFUS.BAG IVPB SCH ×2 (01:15→14:51)
[2025-05-06 08:36] LABS: ABSOLUTE IMMATURE GRANULOCYTES 0.02 x10^3/uL (0.0-0.031); BASOPHILS # 0.01 x10^3/uL (0.01-0.08); EOSINOPHIL % 0.2 % (0.7-5.8); EOSINOPHILS # 0.02 x10^3/uL (0.04-0.36); MCHC 30.8 g/dl (32.2-35.5); MEAN CELL VOLUME 92.8 fl (79.4-94.8); MONOCYTE # 0.55 x10^3/uL (0.24-0.86); MONOCYTE % 5.8 % (4.7-12.5); RDW 15.7 % (12.4-16.6)
[2025-05-06 08:59] LABS: MEAN PLT VOLUME 12.0 fl (9.4-12.3)
[2025-05-06 09:30] LABS: CO2 32 mmol/L (21-32)
[2025-05-06 09:31] LABS: GLUCOSE,RANDOM 134 mg/dL (74-106)
[2025-05-06 09:33] LABS: SGPT/ALT 8 U/L (13-61)
[2025-05-06 09:34] LABS: CREATININE < 0.2 mg/dL (0.55-1.3); SGOT/AST 12 U/L (15-37)
[2025-05-06 09:35] LABS: TOT PROT 4.9 g/dl (6.4-8.2)
[2025-05-06 09:36] LABS: ALK PHOS 72 U/L (45-117)
[2025-05-06] MEDS: MIDODRINE HCL 2.5 MG TABLET NGT SCH (14:51)
[2025-05-06] MEDS: PIPERACILLIN/TAZOB 3.375 GM 3.375 GM in DEXTROSE 5%-WATER - 50 ML IVPB SCH (20:33)
[2025-05-06] MEDS: MAGNESIUM SULFATE IN WATER 2 GM/50 ML IVPB IVPB ONE (23:23)
[2025-05-07] MEDS: KCL 10 MEQ IVPB 10 MEQ/100 ML INFUS.BAG IVPB SCH (00:24)
[2025-05-07] MEDS: LORazepam 2 MG/ML SDV VIAL IVPUSH ONE ×2 (06:25→23:07)
[2025-05-07 06:52] LABS: MCHC 30.2 g/dl (32.2-35.5); MEAN CELL VOLUME 93.5 fl (79.4-94.8); MEAN PLT VOLUME 10.3 fl (9.4-12.3); RDW 15.8 % (12.4-16.6)
[2025-05-07 06:54] LABS: CO2 34.0 mmol/L (21-32); GLUCOSE,RANDOM 116.0 mg/dL (74-106)
[2025-05-07 06:56] LABS: SGPT/ALT 9.0 U/L (13-61)
[2025-05-07 06:57] LABS: CREATININE 0.2 mg/dL (0.55-1.3); SGOT/AST 9.0 U/L (15-37)
[2025-05-07 06:58] LABS: TOT PROT 5.3 g/dl (6.4-8.2)
[2025-05-07 06:59] LABS: ALK PHOS 85.0 U/L (45-117)
[2025-05-07] MEDS: ALBUTEROL SO4 2.5/IPRATROPIUM 0.5 INH SOL 3 ML VIAL.NEB. NEB SCH (07:25)
[2025-05-07] MEDS ORDERED: ONDANSETRON 4 MG/2 ML VIAL IVPUSH PRN (07:36)
[2025-05-07] MEDS ORDERED: POLYETHYLENE GLYCOL (HEALTHYLAX) 3350 17 GM PACKET GT PRN (07:36)
[2025-05-07] MEDS: AMINO ACIDS/PROTEIN HYDROLYS 30 ML LIQUID.PKT GT SCH (10:12)
[2025-05-07] MEDS: VANCOMYCIN/WATER FOR INJ (PEG) 750 MG/150 ML BAG IVPB SCH (10:12)
[2025-05-07] MEDS: PANTOPRAZOLE SODIUM 40 MG VIAL IVPUSH SCH (10:12)
[2025-05-07] MEDS: ASCORBIC ACID 500 MG TABLET (FP) GT SCH (10:13)
[2025-05-07] MEDS: PIPERACILLIN/TAZOB 3.375 GM 3.375 GM in DEXTROSE 5%-WATER - 50 ML IVPB SCH (10:13)
[2025-05-07] MEDS: POTASSIUM CHLORIDE ORAL LIQUID 20 MEQ/15 ML GT SCH (10:13)
[2025-05-07] MEDS: ENOXAPARIN NA (PORCINE) 40 MG/0.4 ML DISP.SYRIN SQ SCH (10:13)
[2025-05-07] MEDS: LETROZOLE 2.5 MG TABLET (FP) GT SCH (10:40)
[2025-05-07] MEDS: predniSONE 5 MG/5 ML ORAL SOLN- UNIT-DOSE CUP NGT SCH (10:40)
[2025-05-07] MEDS: morphine CARPU-JECT 2 MG/1 ML DISP.SYRIN IVPUSH PRN (16:58)
[2025-05-07] MEDS ORDERED: VANCOMYCIN/WATER FOR INJ (PEG) 750 MG/150 ML BAG IVPB SCH (19:00)
[2025-05-07] MEDS: ACETAMINOPHEN 650 MG/20.3 ML ORAL SOLUTION (CUPS) NGT PRN (19:15)
[2025-05-07] MEDS: MIDODRINE HCL 5 MG TABLET NGT SCH (23:07)
[2025-05-08 06:48] LABS: CO2 35 mmol/L (21-32); GLUCOSE,RANDOM 104 mg/dL (74-106)
[2025-05-08 06:59] LABS: MCHC 30.4 g/dl (32.2-35.5); MEAN CELL VOLUME 94.1 fl (79.4-94.8); MEAN PLT VOLUME 10.1 fl (9.4-12.3); RDW 16.0 % (12.4-16.6)
[2025-05-08 08:29] LABS: CREATININE < 0.2 mg/dL (0.55-1.3)
[2025-05-08] MEDS: SCOPOLAMINE HYDROBROMIDE 1 PATCH PATCH.TD72 TD SCH (09:31)
[2025-05-08] MEDS: POTASSIUM CHLORIDE ORAL LIQUID 20 MEQ/15 ML NGT ONE (13:31)
[2025-05-08] MEDS: methylPREDNISolone NA SUCC 125 MG/2 ML VIAL IVPUSH ONE (14:38)
[2025-05-08] MEDS: ALBUTEROL SO4 0.083% IH SOL 2.5 MG/3 ML VIAL.NEB. NEB PRN (14:47)
[2025-05-08] MEDS: ALBUTEROL SO4 2.5/IPRATROPIUM 0.5 INH SOL 3 ML VIAL.NEB. NEB SCH (16:46)
[2025-05-08] MEDS: methylPREDNISolone NA SUCC 40 MG/1 ML VIAL IVPUSH SCH (17:13)
[2025-05-09] MEDS: IOHEXOL (OMNIPAQUE IV) 350 MG/ML - 100 ML BOTTLE NGT ONE (00:10)
[2025-05-09 07:06] LABS: MCHC 28.6 g/dl (32.2-35.5); MEAN CELL VOLUME 96.7 fl (79.4-94.8); MEAN PLT VOLUME 10.0 fl (9.4-12.3); RDW 16.0 % (12.4-16.6)
[2025-05-09 07:36] LABS: CO2 35.0 mmol/L (21-32); GLUCOSE,RANDOM 195.0 mg/dL (74-106)
[2025-05-09 07:38] LABS: SGPT/ALT 6.0 U/L (13-61)
[2025-05-09 07:39] LABS: CREATININE 0.2 mg/dL (0.55-1.3); SGOT/AST 5.0 U/L (15-37)
[2025-05-09 07:40] LABS: TOT PROT 4.6 g/dl (6.4-8.2)
[2025-05-09 07:41] LABS: ALK PHOS 74.0 U/L (45-117)
[2025-05-10 06:49] LABS: MCHC 29.3 g/dl (32.2-35.5); MEAN CELL VOLUME 95.3 fl (79.4-94.8); MEAN PLT VOLUME 10.3 fl (9.4-12.3); RDW 15.9 % (12.4-16.6)
[2025-05-10 06:57] LABS: CO2 32.0 mmol/L (21-32); GLUCOSE,RANDOM 209.0 mg/dL (74-106)
[2025-05-10 06:58] LABS: CREATININE 0.4 mg/dL (0.55-1.3); SGPT/ALT 9.0 U/L (13-61)
[2025-05-10 06:59] LABS: TOT PROT 6.1 g/dl (6.4-8.2)
[2025-05-10 07:00] LABS: SGOT/AST 10.0 U/L (15-37)
[2025-05-10 07:01] LABS: ALK PHOS 92.0 U/L (45-117)
[2025-05-10] MEDS: morphine CARPU-JECT 2 MG/1 ML DISP.SYRIN IVPUSH PRN (10:54)
[2025-05-10 12:41] VITALS: BP 148/89; PULSE 96; TEMP 97.7
[2025-05-10 12:46] VITALS: RESP 26
== END 2025-05-10 13:39 | disposition short-term general hospital (02) | DRG 4 ==
LOC: JER 18:15 → JERBED 20:05 → JICU 21:31 → J5S 05-02 13:17 → J2W 05-07 00:10
PROVIDERS: ADMIT Internal Medicine Pulmonary Disease; ATTEND Internal Medicine
PROC: 5A1955Z Respiratory Ventilation, Greater than 96 Consecutive Hours (ICD-10-PCS; 2025-04-07)
PROC: 0BH17EZ Insertion of Endotracheal Airway into Trachea, Via Natural or Artificial Opening (ICD-10-PCS; 2025-04-07)
PROC: 03HY32Z Insertion of Monitoring Device into Upper Artery, Percutaneous Approach (ICD-10-PCS; 2025-04-07)
PROC: 4A133B1 Monitoring of Arterial Pressure, Peripheral, Percutaneous Approach (ICD-10-PCS; 2025-04-07)
PROC: 4A133J1 Monitoring of Arterial Pulse, Peripheral, Percutaneous Approach (ICD-10-PCS; 2025-04-07)
PROC: 05HC33Z Insertion of Infusion Device into Left Basilic Vein, Percutaneous Approach (ICD-10-PCS; 2025-04-08)
PROC: B54NZZA Ultrasonography of Left Upper Extremity Veins, Guidance (ICD-10-PCS; 2025-04-08)
PROC: 5A1945Z Respiratory Ventilation, 24-96 Consecutive Hours (ICD-10-PCS; 2025-04-12)
PROC: 5A1955Z Respiratory Ventilation, Greater than 96 Consecutive Hours (ICD-10-PCS; 2025-04-16)
PROC: 0B110F4 Bypass Trachea to Cutaneous with Tracheostomy Device, Open Approach (ICD-10-PCS; principal; 2025-05-01)
PROC: 0BJ08ZZ Inspection of Tracheobronchial Tree, Via Natural or Artificial Opening Endoscopic (ICD-10-PCS; 2025-05-01)
DX: A41.9 Sepsis, unspecified organism (principal); E43 Unspecified severe protein-calorie malnutrition; J18.9 Pneumonia, unspecified organism; J96.21 Acute and chronic respiratory failure with hypoxia; J96.22 Acute and chronic respiratory failure with hypercapnia; R65.21 Severe sepsis with septic shock; J91.0 Malignant pleural effusion; R64 Cachexia; Z68.1 Body mass index [BMI] 19.9 or less, adult; C50.919 Malignant neoplasm of unspecified site of unspecified female breast; J44.9 Chronic obstructive pulmonary disease, unspecified; I10 Essential (primary) hypertension; Z99.81 Dependence on supplemental oxygen; F41.1 Generalized anxiety disorder; L89.152 Pressure ulcer of sacral region, stage 2; E83.42 Hypomagnesemia; D50.9 Iron deficiency anemia, unspecified; E87.6 Hypokalemia; E88.09 Other disorders of plasma-protein metabolism, not elsewhere classified
CPT/HCPCS: 36415; 36430; 36600; 71045-TC-FY; 71275-TC; 74176-TC; 80048; 80053; 80076; 81003; 82803; 82962; 83605; 83735; 83880; 84100; 84132; 84439; 84443; 84484; 85025; 85027; 85610; 86140; 86922; 87040; 87070; 87077; 87086; 87205; 87481; 87633; 93005; 93010; 93306-TC; 93971; 94002; 94640; 99291; G0480; J2997; P9058; Q9967